=== PATIENT | male | born 1945 | race Caucasian/White ===

== ENCOUNTER 2018-05-23 06:31 | Day surgery (SDC) | payer OTHER, MEDICARE ==
--- NOTE | 2018-05-22 11:10 | RAD REPORT ---
EXAM DESCRIPTION: RAD - Chest Pa And Lat (2 Views) - 05/22/2018 10:53 am CLINICAL HISTORY: Preop chest, pending hernia repair COMPARISON: None. TECHNIQUE: PA and lateral views of the chest were obtained. FINDINGS: The lungs are clear of a focal mass or consolidation. Dialysis catheter is in place on the right. Patient has prominent interstitial markings favored to be chronic disease. No acute respirato ry symptoms noted. Skin fold artifacts overlie the lower chest. Slight fullness of the left hilum is not outside of the normal range. No right-sided hilar mass or lymphadenopathy suspected. Heart size is normal and central vasculature is within normal limits. No pleural effusion or pneumothorax seen . Osteopenic bony changes are present. No acute bone findings seen. No aortic abnormality. IMPRESSION: Prominent interstitial markings believed to be chronic disease. No acute cardiopulmonary finding.
[2018-05-22 11:56] LABS: Absolute Lymphocytes (CBC) 0.4 K/uL (0.7-4.9); Absolute Monocytes 0.3 K/uL (0.1-1.3); Absolute Neutrophil 4.6 K/uL (1.8-8.0); Eosinophils % 15.6 % (0-4.4); Hematocrit 29.9 % (39.6-49.0); Lymphocytes % 6.6 % (15.3-44.8); MCV 89.8 fL (80-100); MPV 8.9 fL (7.6-11.3); Monocytes % 5.2 % (3.3-12.3); RBC Red Blood Cell Count 3.33 M/uL (4.33-5.43)
[2018-05-22 12:15] LABS: Potassium 4.7 mmol/L (3.5-5.1)
[2018-05-22 12:26] LABS: Blood Morphology Comment NOT SEEN (NOT SEEN); Platelet Estimate ADEQ; Urine White Blood Cell Casts OK
[2018-05-23] MEDS ORDERED: NA CHLORIDE 0.9% 1,000 ML ONE (07:02)
[2018-05-23] MEDS ORDERED: FENTANYL CITR 100 MCG/2 ML ONE (07:27)
[2018-05-23] MEDS ORDERED: PROPOFOL 200 MG/20 ML VIAL IV ONE (07:28)
[2018-05-23] MEDS ORDERED: ONDANSETRON HCL 40 MG/20 ML VIAL ONE (07:29)
[2018-05-23] MEDS ORDERED: LIDOCAINE 2% MPF 5 ML VIAL ONE (07:29)
[2018-05-23] MEDS ORDERED: MIDAZOLAM HCL 2 MG/2 ML INJ ONE (07:29)
[2018-05-23] MEDS ORDERED: ROCURONIUM 50 MG/5 ML VIAL IV ONE (07:30)
[2018-05-23] MEDS ORDERED: CEFAZOLIN/SWI 1gm 1 GM/10 ML SYR ONE (07:49)
[2018-05-23] MEDS ORDERED: GLYCOPYRROLATE 0.2 MG/ML SYR ONE ×2 (09:06)
[2018-05-23] MEDS ORDERED: NEOSTIGMINE 1 MG/ML -5 ML SYRINGE ONE (09:06)
--- NOTE | 2018-05-23 09:11 | P.BOP ---
Preoperative diagnosis: incarcerated right inguinal hernia, tender umbilical hernia Postoperative diagnosis: same Primary procedure: 1. Laparoscopic repair of right inguinal hernia with mesh Secondary procedure: 2. Open repair of umbilical hernia Morning Show Host: Azalia Maria) Estimated blood loss: <10cc Specimen: gb Findings: as above, incarcerated omentum Anesthesia: General Complications: None Implants: 3d mesh Transferred to: Recovery Room Condition: Good
[2018-05-23] MEDS ORDERED: ONDANSETRON 4 MG/2 ML VIAL ONE (10:15)
[2018-05-23] MEDS ORDERED: HYDROCODONE/APAP 5/325 MG TAB ONE (10:35)
== END 2018-05-23 12:15 | disposition home or self-care (01) ==
LOC: OR 06:31
PROVIDERS: ATTEND Surgery
PROC: 0YU54JZ Supplement Right Inguinal Region with Synthetic Substitute, Percutaneous Endoscopic Approach (ICD-10-PCS; principal; 2018-05-23 07:30)
PROC: 0WQF0ZZ Repair Abdominal Wall, Open Approach (ICD-10-PCS; 2018-05-23 07:30)
DX: K40.30 Unilateral inguinal hernia, with obstruction, without gangrene, not specified as recurrent (principal); K42.9 Umbilical hernia without obstruction or gangrene; I13.10 Hypertensive heart and chronic kidney disease without heart failure, with stage 1 through stage 4 chronic kidney disease, or unspecified chronic kidney disease; E11.22 Type 2 diabetes mellitus with diabetic chronic kidney disease; N18.9 Chronic kidney disease, unspecified; Z99.2 Dependence on renal dialysis; K21.9 Gastro-esophageal reflux disease without esophagitis; Z79.82 Long term (current) use of aspirin; Z85.828 Personal history of other malignant neoplasm of skin; Z82.49 Family history of ischemic heart disease and other diseases of the circulatory system
CPT/HCPCS: 36415; 49585; 49650; 71046; 80048; 82962 ×2; 84132; 85025; 88302; J0690; J2250; J2405 ×2; J2710; J3010; J7030

== ENCOUNTER 2021-06-26 15:33 | Emergency (ER) | payer OTHER, MEDICARE ==
--- NOTE | 2021-06-26 17:32 | RAD REPORT ---
EXAM DESCRIPTION: US - Extremity Venous Uni Ltd - 06/26/2021 5:08 pm CLINICAL HISTORY: Left arm pain and swelling COMPARISON: None. TECHNIQUE: Real-time sonographic evaluation of the left upper extremity deep venous systems was perf ormed. FINDINGS: Echogenic thrombus is present in the left axillary vein extending peripherally into the br achial vein. There is absent or only partial compression of these vessels. More peripheral or distal aspects of the brachials vein are clear of thrombus. Radial and ulna veins fully compress. No superfi cial venous thrombosis seen. Internal jugular and subclavian veins are normal as well. IMPRESSION: Acute deep venous thrombosis in the left axillary and brachial veins as detailed.
[2021-06-26 17:39] LABS: Absolute Lymphocytes (CBC) 0.5 K/uL (0.7-4.9); Basophils % 1.1 % (0-1.3); Hematocrit 31.2 % (39.6-49.0); Lymphocytes % 8.1 % (15.3-44.8); MPV 8.2 fL (7.6-11.3); RBC Red Blood Cell Count 3.54 M/uL (4.33-5.43)
[2021-06-26 18:40] LABS: Protime INR 0.98
[2021-06-26 18:50] LABS: Potassium 2.9 mmol/L (3.5-5.1)
--- NOTE | 2021-06-26 19:07 | EDPHYS ---
Physician Documentation [facility] Name: Shahid Cunningham Age: 76 yrs Sex: Male : 1945 Arrival Date: 06/26/2021 Time: 15:35 Bed 13 Private MD: ED Physician Rohit King HPI: 06/26 16:14 This 76 yrs old Male presents to ER via Ambulatory with complaints of Arm kb Problem - swelling. 16:14 The patient or guardian complains of swelling. The complaints affect the left arm. kb Context: The problem was sustained at home, resulted from unknown cause. Onset: The symptoms/episode began/occurred 2 week(s) ago. Treatment prior to arrival includes: prescription medications, antibiotics. Modifying factors: The symptoms are alleviated by nothing. the symptoms are aggravated by nothing. Associated signs and symptoms: Pertinent positives: swelling, Pertinent negatives: decreased range of motion, deformity, erythema, fever, nausea, numbness, pain, tingling, vomiting, warmth, weakness. Severity of symptoms: At their worst the symptoms were moderate, in the emergency department the symptoms are unchanged. The patient has not experienced similar symptoms in the past. The patient has not recently seen a physician. Pt reports he fell 2 weeks ago and has had swelling to left arm ever since. Had two wounds to elbow area that are healing well. Is now on second round of antibiotics from the [place], had x-rays which were normal.. 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 - Social history:: Smoking status: Patient denies any tobacco usage or history of. ROS: 16:06 Constitutional: Negative for fever, chills, and weight loss. kb 16:06 MS/extremity: Positive for swelling, of the left arm. 16:06 All other systems are negative. Exam: 16:12 Constitutional: This is a well developed, well nourished patient who is awake, alert, kb and in no acute distress. Head/Face: Normocephalic, atraumatic. ENT: Moist Mucous membranes Respiratory: Respirations even and unlabored. No increased work of breathing, no retractions or nasal flaring. Skin: Warm, dry with normal turgor. Normal color. Neuro: Awake and alert, GCS 15, oriented to person, place, time, and situation. Moves all extremities. Normal gait. Psych: Awake, alert, with orientation to person, place and time. Behavior, mood, and affect are within normal limits. 16:12 Musculoskeletal/extremity: Extremities: grossly normal except: noted in the left arm: swelling, ROM: intact in all extremities, Circulation is intact in all extremities. Sensation intact. Vital Signs: 15:42 BP 148 / 94; Pulse 83; Resp 17; Temp 98.9; Pulse Ox 100% ; Weight 86.18 kg; Height 6 ll1 ft. 4 in. (193.04 cm); Pain 0/10; 18:47 BP 172 / 98; Pulse 87; Resp 18; Pulse Ox 99% on R/A; jt3 15:42 Body Mass Index 23.13 (86.18 kg, 193.04 cm) ll1 MDM: 15:45 Patient medically screened. kb 15:58 Data reviewed: vital signs, nurses notes. Data interpreted: Pulse oximetry: on room air kb is 100 %. Interpretation: normal. 18:56 Counseling: I had a detailed discussion with the patient and/or guardian regarding: the kb historical points, exam findings, and any diagnostic results supporting the discharge/admit diagnosis, lab results, radiology results, the need for outpatient follow up, a family practitioner, to return to the emergency department if symptoms worsen or persist or if there are any questions or concerns that arise at home. 19:03 ED course: Consulted hospitalist about admission because a CT PE cannot be done due to kb creatinine/PD. Recommended outpatient Eliquis. Pt states he doesn't want to be admitted anyway. States he doesn't like to move his PD machine and would rather go home. Pt denies any shortness of breath or chest pain. Pt o2 sat 100% on room air. Resp even and unlabored. Pt given strict return precautions. Daughter educated as well. Both in agreement with plan of care. . 06/26 16:04 Order name: CBC with Diff; Complete Time: 18:40 kb 06/26 16:04 Order name: Basic Metabolic Panel; Complete Time: 18:51 kb 06/26 16:04 Order name: US Extremity Venous Unilateral Ltd; Complete Time: 17:35 kb 06/26 17:04 Order name: Protime (+inr); Complete Time: 18:40 kb 06/26 17:04 Order name: Ptt, Activated; Complete Time: 18:40 kb 06/26 16:04 Order name: IV Start; Complete Time: 17:29 kb Administered Medications: 18:57 CANCELLED (Duplicate Order): Potassium Chloride 20 mEq PO once kb 19:06 Drug: Potassium Chloride 40 mEq Route: PO; jt3 19:37 Follow up: Response: No adverse reaction bb 19:06 Drug: Eliquis (apixaban) 10 mg Route: PO; jt3 19:37 Follow up: Response: No adverse reaction bb Disposition Summary: 06/26/21 19:06 Discharge Ordered Location: Home kb Condition: Stable kb Diagnosis - Acute embolism and thrombosis of deep veins of left upper extremity kb Followup: kb - With: Emergency Department - When: As needed - Reason: Worsening of condition Followup: kb - With: Private Physician - When: 2 - 3 days - Reason: Recheck today's complaints, Continuance of care, Re-evaluation by your physician Discharge Instructions: - Discharge Summary Sheet kb - Deep Vein Thrombosis kb Forms: - Medication Reconciliation Form kb - Thank You Letter kb - Antibiotic Education kb - Prescription Opioid Use kb Prescriptions: - Eliquis DVT-PE Treat 30D Start 5 mg (74 tabs) Oral tablets,dose pack - take 10 milligram by ORAL route 2 times per day Take 10mg BID for 7 days, then kb 5mg BID until prescription complete; 74 milligram; Refills: 0, Product Selection Permitted Addendum: 06/29/2021 22:59 Co-signature as Attending Physician, Rohit King MD PA/GRE TUTOR's history reviewed, m a2 patient interviewed, and examined. I agree with assessment and care plan and confirm the diagnosis (es) above. Signatures: Dispatcher [employer] Sisi Maharaj, SHANNON-C HAND PLATE STACKER-Rohit Cole MD MD ma2 Juan Jade RN RN ll1 Shay Morris RN RN jt3 Renay Vaca RN bb Corrections: (The following items were deleted from the chart) 06/26 15:42 15:39 Allergies: No Known Allergies; ll1 ll1 18:57 18:56 Potassium Chloride 20 mEq PO once ordered. kb kb
--- NOTE | 2021-06-26 19:07 | ER ---
Nurse's Notes [facility] Name: Shahid Cunningham Age: 76 yrs Sex: Male : 1945 Arrival Date: 06/26/2021 Time: 15:35 Bed 13 Private MD: Diagnosis: Acute embolism and thrombosis of deep veins of left upper extremity Presentation: 06/26 15:42 Chief complaint: Patient states: L arm swelling for 2 weeks. Was told to come get check ll1 at ER if it doesn't get better. [facility]. Coronavirus screen: Vaccine status: Patient reports receiving the 2nd dose of the covid vaccine. Client denies travel out of the [place] in the last 14 days. At this time, the client does not indicate any symptoms associated with coronavirus-19. Ebola Screen: Patient denies travel to an Ebola-affected area in the 21 days before illness onset. Initial Sepsis Screen: Does the patient meet any 2 criteria? No. Patient's initial sepsis screen is negative. Does the patient have a suspected source of infection? Yes: Skin breakdown/wound. Risk Assessment: Do you want to hurt yourself or someone else? Patient reports no desire to harm self or others. Onset of symptoms was June 12, 2021. 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 - Social history:: Smoking status: Patient denies any tobacco usage or history of. Screenin:56 Abuse screen: Denies threats or abuse. Denies injuries from another. jt3 18:47 Nutritional screening: No deficits noted. Tuberculosis screening: No symptoms or risk jt3 factors identified. Fall Risk None identified. Assessment: 15:56 Pain: Denies pain. Musculoskeletal: Reports Pt. has 3+ pitting edema to his left arm. jt3 Denies pain. Pt. had a fall 6 weeks ago and has had on and off swelling in his left arm. No exudate coming from arm. Pt. has minor healing wounds on left arm. 17:21 Reassessment: Pt. transported to US.. jt3 18:47 Reassessment: Patient appears in no apparent distress at this time. No changes from jt3 previously documented assessment. 19:36 Reassessment: Patient is alert, oriented x 3, equal unlabored respirations, skin bb warm/dry/pink. pt verbalized understanding of and agrees to plan of care discharge instructions given pt ambulated with steady gait to exit accompanied by family. Vital Signs: 15:42 BP 148 / 94; Pulse 83; Resp 17; Temp 98.9; Pulse Ox 100% ; Weight 86.18 kg; Height 6 ll1 ft. 4 in. (193.04 cm); Pain 0/10; 18:47 BP 172 / 98; Pulse 87; Resp 18; Pulse Ox 99% on R/A; jt3 15:42 Body Mass Index 23.13 (86.18 kg, 193.04 cm) ll1 ED Course: 15:35 Patient arrived in ED. as 15:39 Arm band placed on Patient placed in an exam room, on a stretcher. ll1 15:43 Triage completed. ll1 15:44 Shay Morris, DELPHINE is Primary Nurse. jt3 15:45 Sisi Phan FNP-C is PHCP. kb 15:45 Rohit King MD is Attending Physician. kb 15:56 Patient has correct armband on for positive identification. Fall risk band placed. Bed jt3 in low position. Call light in reach. Side rails up X2. 15:56 No provider procedures requiring assistance completed. jt3 17:07 US Extremity Venous Unilateral Ltd In Process Unspecified. EDMS 17:28 Inserted saline lock: 22 gauge in right antecubital area, using aseptic technique. gd Blood collected. 17:29 Basic Metabolic Panel Sent. gd 18:50 Notified ED physician of a critical lab result(s). Potassium: 2.9, Creatinine jt3 6.31-Sisi ORTEGA. 19:37 IV discontinued, intact, bleeding controlled, No redness/swelling at site. Pressure bb dressing applied. Administered Medications: 18:57 CANCELLED (Duplicate Order): Potassium Chloride 20 mEq PO once kb 19:06 Drug: Potassium Chloride 40 mEq Route: PO; jt3 19:37 Follow up: Response: No adverse reaction bb 19:06 Drug: Eliquis (apixaban) 10 mg Route: PO; jt3 19:37 Follow up: Response: No adverse reaction bb Outcome: 19:06 Discharge ordered by . kb 19:36 Discharged to home ambulatory, with family. bb 19:36 Condition: stable 19:36 Discharge instructions given to patient, family, Instructed on discharge instructions, follow up and referral plans. medication usage, Demonstrated understanding of instructions, follow-up care, medications, Prescriptions given X 1. 19:40 Patient left the ED. bb Signatures: Dispatcher [employer] EDMS Sisi Phan, ART EDITOR-C ART EDITOR-Mirella Montenegro Brenda RN RN bb Juan Jade RN RN ll1 Ace [place] Jordan RN RN jt3 Corrections: (The following items were deleted from the chart) 15:42 15:39 Allergies: No Known Allergies; ll1 ll1
[2021-06-26] MEDS ORDERED: APIXABAN 5 MG TABLET ONE (19:25)
[2021-06-26] MEDS ORDERED: POTASSIUM CL SA 10 MEQ TAB PO ONE (19:26)
[2021-06-26 19:46] VITALS: TEMP 98.9
[2021-06-26 19:47] VITALS: BP 172/98; O2SAT 99
== END 2021-06-26 19:40 | disposition home or self-care (01) ==
LOC: ER 15:33
DX: I82.622 Acute embolism and thrombosis of deep veins of left upper extremity (principal); I10 Essential (primary) hypertension; Z95.0 Presence of cardiac pacemaker; Z88.5 Allergy status to narcotic agent
CPT/HCPCS: 36415; 80048; 85025; 85610; 85730; 93971; 99284

== ENCOUNTER 2021-09-02 15:07 | Inpatient (IN) | payer OTHER, MEDICARE ==
--- OUTSIDE RECORDS SUMMARY | 2021-09-02 15:11 | XMS REPORT | Continuity of Care Document ---
:1945 Author Organization [facility] t Address [address] [place] [address] Care Team Providers Name Role Phone Leodan Attending Clinician Unavailable Leodan Admitting Clinician Unavailable Luz Ruiz Admitting Clinician Unavailable Payers Payer Name Policy Type Policy Number Effective Date Expiration Date S ource Problems This patient has no known problems. Allergies, Adverse Reactions, Alerts Allergy Allergy Status Severity Reaction(s) Onset Inactive Treating Comm ents Source Name Type Date Date Clinician codeine DA Active U 2020-0 [facility] 8[facility] Clear 00:00: [place] 00 [facility] codeine DA Active U VOMITING 2020-0 [facility] 8-08 Clear 00:00: [place] 00 [facility] codeine DA Active U 2003- [facility] 2[facility] [place] [facility] levoflox DA Active U 2003- [facility] acin 2- [place] [facility] d [facility] CODEINE DA Active U 2003- [facility] 2-11 [place] 00:00: d 00 [facility] LEVAQUIN DA Active U 2003- [facility] 2[facility] [place] 00[facility] d [facility] No Known DA Active U 2003- [facility] Contrast 2-11 [place] Allergie 00:00: d s 00 [facility] No Known DA Active U 2003- [facility] Food 2-11 [place] Allergie 00:00: d s 00 [facility] No Known DA Active U 2003- [facility] Other 2-11 [place] Allergie 00:00: d s 00 [facility] Medications This patient has no known medications. Procedures Procedure Date / Time Performed Performing Clinician Sourc e [id number] 2021-04-11 00:00:00 AHMMO.01 [facility] [id number] 2021-04-10 00:00:00 BURDA.06 [facility] [id number] 2021-04-10 00:00:00 BURDA.06 [facility] [id number] 2021-04-10 00:00:00 BURDA.06 [facility] [id number] 2021-04-10 00:00:00 BURDA.06 [facility] [id number] 2021-04-10 00:00:00 BURDA.06 [facility] [id number] 2021-04-09 00:00:00 GAHAM [facility] [id number] 2021-04-09 00:00:00 AHMMO.01 [facility] [id number] 2021-04-08 00:00:00 AHMMO.01 [facility] Encounters Start End Encounter Admission Attending Care Care Encounter Source Date/Time Date/Time Type Type Clinicians Facility Department ID 2021-04-06 2021-04-12 Inpatient EM KIMMIE Alcocer INTE.02 [id number] [facility] 13:36:00 17:13:00 [facility] [id number] [facility] 2021-04-06 2021-04-06 Outpatient ENDY Alcocer LABO [id number] [facility] 21:22:00 21:22:00 [facility] [id number] [facility] 2021-04-05 2021-04-05 Inpatient EM KIMMIE Alcocer INTE.02 [id number] [facility] 23:01:00 23:00:00 [facility] [id number] [facility] Results Test Description Test Time Test Comments Results Result Comments Source GLUCOSE BEDSIDE TESTING 2021-04-11 14:15:00 Test Item Value Reference Range Interpretation Comme nts GLUCOSE BEDSIDE TESTING (test code = GLUBED) 141 mg/dL 70-110 H GLUCOSE BEDSIDE [id number] 09:40:00 Test Item Value Reference Range Interpretation Comments GLUCOSE BEDSIDE TESTING (test code 140 mg/dL 70-110 H = GLUBED) CBC W/AUTO [id number] 06:25:00 Test Item Value Reference Range Interpretation Comments WHITE BLOOD CELL 5.4 K/mm3 3.5-11.0 N (test code = WBC) RED BLOOD CELL (test 3.79 M/mm3 4.70-6.10 L code = RBC) HEMOGLOBIN (test code 10.9 G/DL 12.3-15.9 L = HGB) HEMATOCRIT (test code 34.2 % 35.8-46.7 L = HCT) MEAN CELL VOLUME 90.2 Fl 86.3-98.9 N (test code = MCV) MEAN CELL HGB (test 28.8 pg 28.9-34.4 L code = MCH) MEAN CELL HGB 31.9 G/DL 32.1-34.5 L CONCETRATION (test code = MCHC) RED CELL DISTRIBUTION 15.1 SD 11.5-14.5 H WIDTH (test code = RDW) PLATELET COUNT (test 141 K/mm3 150-450 L code = PLT) MEAN PLATELET VOLUME 10.80 fL 7.0-9.6 H (test code = MPV) NEUTROPHIL % (test 76.1 % 40-76 H code = NT%) IMMATURE GRANULOCYTE 0.2 % 0.0-5.0 N % (test code = IG%) LYMPHOCYTE % (test 4.9 % 20.5-51.1 L code = LY%) MONOCYTE % (test code 7.9 % 1.7-9.3 N = MO%) EOSINOPHIL % (test 10.5 % 0.0-6.0 H code = EO%) BASOPHIL % (test code 0.4 % 0.0-2.0 N = BA%) NUCLEATED RBC % (test 0.0 /100WBC% 0.0-1.0 N code = NRBC%) NEUTROPHIL # (test 4.1 K/mm3 1.8-7.6 N code = NT#) IMMATURE GRANULOCYTE 0.01 x10 3/uL 0.00-0.03 N # (test code = IG#) LYMPHOCYTE # (test 0.3 K/mm3 0.6-3.0 L code = LY#) MONOCYTE # (test code 0.4 K/mm3 0.2-1.5 N = MO#) EOSINOPHIL # (test 0.6 K/mm3 0.0-0.4 H code = EO#) BASOPHIL # (test code 0.0 K/mm3 0.0-0.2 N = BA#) NUCLEATED RBC # (test 0.0 K/mm3 0.00-0.01 N code = NRBC#) MANUAL DIFF REQUIRED NO DIFF/SCN CRITERIA SLIDE R BLESSING (test code = MDIFF) CONSISTA NT WITH AUTO DIFFERENTI AL. RENAL FUNCTION [id number] 06:16:00 Test Item Value Reference Range Interpretation Comments SODIUM (test code = NA) 139 mmol/L 134-147 N POTASSIUM (test code = K) 3.4 mmol/L 3.4-5.0 N CHLORIDE (test code = CL) 105 mmol/L 100-108 N CARBON DIOXIDE (test code = CO2) 28 mmol/L 21-32 N GLUCOSE (test code = GLU) 201 MG/DL 70-110 H BLOOD UREA NITROGEN (test code = 23 MG/DL 7-18 H BUN) GLOMERULAR FILTRATION RATE (test 9 estGFR >60 L code = GFR) CREATININE (test code = CREAT) 6.7 MG/DL 0.8-1.3 H ALBUMIN (test code = ALB) 1.9 G/DL 3.4-5.0 L CALCIUM (test code = CA) 8.0 MG/DL 8.5-10.1 L PHOSPHOROUS (test code = PHOS) 4.3 MG/DL 2.5-4.9 N CBC W/AUTO [id number] 05:32:00 Test Item Value Reference Range Interpretation Comments WHITE BLOOD CELL (test code = WBC) 5.4 K/mm3 3.5-11.0 N RED BLOOD CELL (test code = RBC) 3.79 M/mm3 4.70-6.10 L HEMOGLOBIN (test code = HGB) 10.9 G/DL 12.3-15.9 L HEMATOCRIT (test code = HCT) 34.2 % 35.8-46.7 L MEAN CELL VOLUME (test code = MCV) 90.2 Fl 86.3-98.9 N MEAN CELL HGB (test code = MCH) 28.8 pg 28.9-34.4 L MEAN CELL HGB CONCETRATION (test 31.9 G/DL 32.1-34.5 L code = MCHC) RED CELL DISTRIBUTION WIDTH (test SD 11.5-14.5 H code = RDW) PLATELET COUNT (test code = PLT) 141 K/mm3 150-450 L MEAN PLATELET VOLUME (test code = fL 7.0-9.6 H MPV) NEUTROPHIL % (test code = NT%) % 40-76 H IMMATURE GRANULOCYTE % (test code % 0.0-5.0 N = IG%) LYMPHOCYTE % (test code = LY%) % 20.5-51.1 L MONOCYTE % (test code = MO%) % 1.7-9.3 N EOSINOPHIL % (test code = EO%) % 0.0-6.0 H BASOPHIL % (test code = BA%) % 0.0-2.0 N NUCLEATED RBC % (test code = /100WBC% 0.0-1.0 N NRBC%) NEUTROPHIL # (test code = NT#) K/mm3 1.8-7.6 N IMMATURE GRANULOCYTE # (test code x10 3/uL 0.00-0.03 N = IG#) LYMPHOCYTE # (test code = LY#) K/mm3 0.6-3.0 L MONOCYTE # (test code = MO#) K/mm3 0.2-1.5 N EOSINOPHIL # (test code = EO#) K/mm3 0.0-0.4 H BASOPHIL # (test code = BA#) K/mm3 0.0-0.2 N NUCLEATED RBC # (test code = K/mm3 0.00-0.01 N NRBC#) MANUAL DIFF REQUIRED (test code = DIFF/SCN CRITERIA MDIFF) GLUCOSE BEDSIDE [id number] 20:34:00 Test Item Value Reference Range Interpretation Comments GLUCOSE BEDSIDE TESTING (test code 235 mg/dL 70-110 H = GLUBED) - XR CHEST 1 [id number] 13:12:00 [facility] [place] : 1945 Sex: M Name: KIRIT PEÑA : 1945ge/S: / [place] [address] Unit #: [id number] Loc: [place] [address] Phys: Deon Mederos MD Acct: [id number] Dis Date: Status: ADM IN PHONE#: [phone] Exam Date: 04/10/2021 1255 FAX #: Reason: s/p ICD EXAMS: CPT: [id number] XR CHEST 1 V [id number] Fluoro Time: DAP (Gy m2): Air Kerma (mGy): EXAMINATION: Frontal chest radiograph INDICATION: s/p ICD COMPARISON: 04/06/2021 LOCATION: S17 FINDINGS: Enlarged cardiac silhouette with left chest defibrillator. No definite pleural effusion or pneumothorax. Slightly increased left basilar atelectasis, component of infection not excluded. Possible mild interstitial edema. IMPRESSION: 1. No pneumothorax. 2. Slightly increased left basilar opacity. Possible mild interstitial edema. at 1312 Reported and signed by: Lewis Gómez M.D. CC: Deon Mederos MD; Ric Alcocer MD; Krysten Ruiz MD PAGE 1 Signed Report Name: KIRIT PEÑA Freeborn : 1945 Age/S: / [place] [address] Unit #: [id number] Loc: [place] [address] Phys: Deon Mederos MD Acct: [id number] Dis Date: Status: ADM IN PHONE #: [phone] Exam Date: 04/10/2021 1255 FAX #: Reason: s/p ICD EXAMS: CPT: [id number] XR CHEST 1 V [id number] Fluoro Time: DAP (Gy m2): Air Kerma (mGy): <Continued> Technologist: Tiffanie Malone RT(R)(CT) Trnscb Date/Time: 04/10/2021 (1312) [email or web address] Orig Print D/T: S: 04/10/2021(1873) PAGE 2 Signed ReportGLUCOSE BEDSIDE [id number] 11:32:00 Test Item Value Reference Range Interpretation Comments GLUCOSE BEDSIDE TESTING (test code 136 mg/dL 70-110 H = GLUBED) GLUCOSE BEDSIDE [id number] 07:53:00 Test Item Value Reference Range Interpretation Comments GLUCOSE BEDSIDE TESTING (test code 116 mg/dL 70-110 H = GLUBED) BASIC METABOLIC [id number] 06:49:00 Test Item Value Reference Range Interpretation Comments SODIUM (test code = NA) 140 mmol/L 134-147 N POTASSIUM (test code = K) 3.3 mmol/L 3.4-5.0 L CHLORIDE (test code = CL) 105 mmol/L 100-108 N CARBON DIOXIDE (test code = CO2) 30 mmol/L 21-32 N ANION GAP (test code = GAP) 5.0 GAP calc 4.0-15.0 N GLUCOSE (test code = GLU) 115 MG/DL 70-110 H BLOOD UREA NITROGEN (test code = 25 MG/DL 7-18 H BUN) GLOMERULAR FILTRATION RATE (test 9 estGFR >60 L code = GFR) CREATININE (test code = CREAT) 6.7 MG/DL 0.8-1.3 H CALCIUM (test code = CA) 7.8 MG/DL 8.5-10.1 L RENAL FUNCTION [id number] 06:49:00 Test Item Value Reference Range Interpretation Comments ALBUMIN (test code = ALB) 2.1 G/DL 3.4-5.0 L PHOSPHOROUS (test code = PHOS) 4.0 MG/DL 2.5-4.9 N CBC W/AUTO [id number] 06:42:00 Test Item Value Reference Range Interpretation Comments WHITE BLOOD CELL 4.6 K/mm3 3.5-11.0 N (test code = WBC) RED BLOOD CELL (test 3.98 M/mm3 4.70-6.10 L code = RBC) HEMOGLOBIN (test code 11.5 G/DL 12.3-15.9 L = HGB) HEMATOCRIT (test code 35.9 % 35.8-46.7 N = HCT) MEAN CELL VOLUME 90.2 Fl 86.3-98.9 N (test code = MCV) MEAN CELL HGB (test 28.9 pg 28.9-34.4 N code = MCH) MEAN CELL HGB 32.0 G/DL 32.1-34.5 L CONCETRATION (test code = MCHC) RED CELL DISTRIBUTION 15.0 SD 11.5-14.5 H WIDTH (test code = RDW) PLATELET COUNT (test 154 K/mm3 150-450 N code = PLT) MEAN PLATELET VOLUME 10.90 fL 7.0-9.6 H (test code = MPV) NEUTROPHIL % (test 69.9 % 40-76 N code = NT%) IMMATURE GRANULOCYTE 0.2 % 0.0-5.0 N % (test code = IG%) LYMPHOCYTE % (test 8.1 % 20.5-51.1 L code = LY%) MONOCYTE % (test code 7.6 % 1.7-9.3 N = MO%) EOSINOPHIL % (test 13.8 % 0.0-6.0 H code = EO%) BASOPHIL % (test code 0.4 % 0.0-2.0 N = BA%) NUCLEATED RBC % (test 0.0 /100WBC% 0.0-1.0 N code = NRBC%) NEUTROPHIL # (test 3.2 K/mm3 1.8-7.6 N code = NT#) IMMATURE GRANULOCYTE 0.01 x10 3/uL 0.00-0.03 N # (test code = IG#) LYMPHOCYTE # (test 0.4 K/mm3 0.6-3.0 L code = LY#) MONOCYTE # (test code 0.4 K/mm3 0.2-1.5 N = MO#) EOSINOPHIL # (test 0.6 K/mm3 0.0-0.4 H code = EO#) BASOPHIL # (test code 0.0 K/mm3 0.0-0.2 N = BA#) NUCLEATED RBC # (test 0.0 K/mm3 0.00-0.01 N code = NRBC#) MANUAL DIFF REQUIRED NO DIFF/SCN CRITERIA SLIDE R COTYW (test code = MDIFF) CONSISTA NT WITH AUTO DIFFERENTI AL. CBC W/AUTO [id number] 05:47:00 Test Item Value Reference Range Interpretation Comments WHITE BLOOD CELL (test code = WBC) 4.6 K/mm3 3.5-11.0 N RED BLOOD CELL (test code = RBC) 3.98 M/mm3 4.70-6.10 L HEMOGLOBIN (test code = HGB) 11.5 G/DL 12.3-15.9 L HEMATOCRIT (test code = HCT) 35.9 % 35.8-46.7 N MEAN CELL VOLUME (test code = MCV) 90.2 Fl 86.3-98.9 N MEAN CELL HGB (test code = MCH) 28.9 pg 28.9-34.4 N MEAN CELL HGB CONCETRATION (test 32.0 G/DL 32.1-34.5 L code = MCHC) RED CELL DISTRIBUTION WIDTH (test SD 11.5-14.5 H code = RDW) PLATELET COUNT (test code = PLT) 154 K/mm3 150-450 N MEAN PLATELET VOLUME (test code = fL 7.0-9.6 H MPV) NEUTROPHIL % (test code = NT%) % 40-76 N IMMATURE GRANULOCYTE % (test code % 0.0-5.0 N = IG%) LYMPHOCYTE % (test code = LY%) % 20.5-51.1 L MONOCYTE % (test code = MO%) % 1.7-9.3 N EOSINOPHIL % (test code = EO%) % 0.0-6.0 H BASOPHIL % (test code = BA%) % 0.0-2.0 N NUCLEATED RBC % (test code = /100WBC% 0.0-1.0 N NRBC%) NEUTROPHIL # (test code = NT#) K/mm3 1.8-7.6 N IMMATURE GRANULOCYTE # (test code x10 3/uL 0.00-0.03 N = IG#) LYMPHOCYTE # (test code = LY#) K/mm3 0.6-3.0 L MONOCYTE # (test code = MO#) K/mm3 0.2-1.5 N EOSINOPHIL # (test code = EO#) K/mm3 0.0-0.4 H BASOPHIL # (test code = BA#) K/mm3 0.0-0.2 N NUCLEATED RBC # (test code = K/mm3 0.00-0.01 N NRBC#) MANUAL DIFF REQUIRED (test code = DIFF/SCN CRITERIA MDIFF) GLUCOSE BEDSIDE [id number] 20:52:00 Test Item Value Reference Range Interpretation Comments GLUCOSE BEDSIDE TESTING (test code 175 mg/dL 70-110 H = GLUBED) GLUCOSE BEDSIDE [id number] 17:02:00 Test Item Value Reference Range Interpretation Comments GLUCOSE BEDSIDE TESTING (test code 144 mg/dL 70-110 H = GLUBED) GLUCOSE BEDSIDE [id number] 11:28:00 Test Item Value Reference Range Interpretation Comments GLUCOSE BEDSIDE TESTING (test code 104 mg/dL 70-110 N = GLUBED) CBC W/AUTO [id number] 08:33:00 Test Item Value Reference Range Interpretation Comments WHITE BLOOD CELL 4.6 K/mm3 3.5-11.0 N (test code = WBC) RED BLOOD CELL (test 3.68 M/mm3 4.70-6.10 L code = RBC) HEMOGLOBIN (test code 10.7 G/DL 12.3-15.9 L = HGB) HEMATOCRIT (test code 33.4 % 35.8-46.7 L = HCT) MEAN CELL VOLUME 90.8 Fl 86.3-98.9 N (test code = MCV) MEAN CELL HGB (test 29.1 pg 28.9-34.4 N code = MCH) MEAN CELL HGB 32.0 G/DL 32.1-34.5 L CONCETRATION (test code = MCHC) RED CELL DISTRIBUTION 15.3 SD 11.5-14.5 H WIDTH (test code = RDW) PLATELET COUNT (test 143 K/mm3 150-450 L code = PLT) MEAN PLATELET VOLUME 10.70 fL 7.0-9.6 H (test code = MPV) NEUTROPHIL % (test 71.8 % 40-76 N code = NT%) IMMATURE GRANULOCYTE 0.2 % 0.0-5.0 N % (test code = IG%) LYMPHOCYTE % (test 9.6 % 20.5-51.1 L code = LY%) MONOCYTE % (test code 6.8 % 1.7-9.3 N = MO%) EOSINOPHIL % (test 11.2 % 0.0-6.0 H code = EO%) BASOPHIL % (test code 0.4 % 0.0-2.0 N = BA%) NUCLEATED RBC % (test 0.0 /100WBC% 0.0-1.0 N code = NRBC%) NEUTROPHIL # (test 3.3 K/mm3 1.8-7.6 N code = NT#) IMMATURE GRANULOCYTE 0.01 x10 3/uL 0.00-0.03 N # (test code = IG#) LYMPHOCYTE # (test 0.4 K/mm3 0.6-3.0 L code = LY#) MONOCYTE # (test code 0.3 K/mm3 0.2-1.5 N = MO#) EOSINOPHIL # (test 0.5 K/mm3 0.0-0.4 H code = EO#) BASOPHIL # (test code 0.0 K/mm3 0.0-0.2 N = BA#) NUCLEATED RBC # (test 0.0 K/mm3 0.00-0.01 N code = NRBC#) MANUAL DIFF REQUIRED NO DIFF/SCN CRITERIA SLIDE R COTYW (test code = MDIFF) CONSISTA NT WITH AUTO DIFFERENTI AL. GLUCOSE BEDSIDE [id number] 07:55:00 Test Item Value Reference Range Interpretation Comments GLUCOSE BEDSIDE TESTING (test code 131 mg/dL 70-110 H = GLUBED) BASIC METABOLIC [id number] 06:33:00 Test Item Value Reference Range Interpretation Comments SODIUM (test code = NA) 139 mmol/L 134-147 N POTASSIUM (test code = K) 3.6 mmol/L 3.4-5.0 N CHLORIDE (test code = CL) 105 mmol/L 100-108 N CARBON DIOXIDE (test code = CO2) 27 mmol/L 21-32 N ANION GAP (test code = GAP) 7.0 GAP calc 4.0-15.0 N GLUCOSE (test code = GLU) 154 MG/DL 70-110 H BLOOD UREA NITROGEN (test code = 28 MG/DL 7-18 H BUN) GLOMERULAR FILTRATION RATE (test 8 estGFR >60 L code = GFR) CREATININE (test code = CREAT) 6.9 MG/DL 0.8-1.3 H CALCIUM (test code = CA) 7.7 MG/DL 8.5-10.1 L RENAL FUNCTION [id number] 06:33:00 Test Item Value Reference Range Interpretation Comments ALBUMIN (test code = ALB) 2.0 G/DL 3.4-5.0 L PHOSPHOROUS (test code = PHOS) 3.8 MG/DL 2.5-4.9 N [id number] 06:33:00 Test Item Value Reference Range Interpretation Comments MAGNESIUM (test code = MAG) 2.1 MG/DL 1.8-2.4 CBC W/AUTO [id number] 06:21:00 Test Item Value Reference Range Interpretation Comments WHITE BLOOD CELL (test code = WBC) 4.6 K/mm3 3.5-11.0 N RED BLOOD CELL (test code = RBC) 3.68 M/mm3 4.70-6.10 L HEMOGLOBIN (test code = HGB) 10.7 G/DL 12.3-15.9 L HEMATOCRIT (test code = HCT) 33.4 % 35.8-46.7 L MEAN CELL VOLUME (test code = MCV) 90.8 Fl 86.3-98.9 N MEAN CELL HGB (test code = MCH) 29.1 pg 28.9-34.4 N MEAN CELL HGB CONCETRATION (test 32.0 G/DL 32.1-34.5 L code = MCHC) RED CELL DISTRIBUTION WIDTH (test SD 11.5-14.5 H code = RDW) PLATELET COUNT (test code = PLT) 143 K/mm3 150-450 L MEAN PLATELET VOLUME (test code = fL 7.0-9.6 H MPV) NEUTROPHIL % (test code = NT%) % 40-76 N IMMATURE GRANULOCYTE % (test code % 0.0-5.0 N = IG%) LYMPHOCYTE % (test code = LY%) % 20.5-51.1 L MONOCYTE % (test code = MO%) % 1.7-9.3 N EOSINOPHIL % (test code = EO%) % 0.0-6.0 H BASOPHIL % (test code = BA%) % 0.0-2.0 N NUCLEATED RBC % (test code = /100WBC% 0.0-1.0 N NRBC%) NEUTROPHIL # (test code = NT#) K/mm3 1.8-7.6 N IMMATURE GRANULOCYTE # (test code x10 3/uL 0.00-0.03 N = IG#) LYMPHOCYTE # (test code = LY#) K/mm3 0.6-3.0 L MONOCYTE # (test code = MO#) K/mm3 0.2-1.5 N EOSINOPHIL # (test code = EO#) K/mm3 0.0-0.4 H BASOPHIL # (test code = BA#) K/mm3 0.0-0.2 N NUCLEATED RBC # (test code = K/mm3 0.00-0.01 N NRBC#) MANUAL DIFF REQUIRED (test code = DIFF/SCN CRITERIA MDIFF) GLUCOSE BEDSIDE [id number] 20:25:00 Test Item Value Reference Range Interpretation Comments GLUCOSE BEDSIDE TESTING (test code 242 mg/dL 70-110 H = GLUBED) CBC W/AUTO [id number] 14:15:00 Test Item Value Reference Range Interpretation Comments WHITE BLOOD CELL 4.9 K/mm3 3.5-11.0 N (test code = WBC) RED BLOOD CELL (test 3.89 M/mm3 4.70-6.10 L code = RBC) HEMOGLOBIN (test code 11.3 G/DL 12.3-15.9 L = HGB) HEMATOCRIT (test code 35.2 % 35.8-46.7 L = HCT) MEAN CELL VOLUME 90.5 Fl 86.3-98.9 N (test code = MCV) MEAN CELL HGB (test 29.0 pg 28.9-34.4 N code = MCH) MEAN CELL HGB 32.1 G/DL 32.1-34.5 N CONCETRATION (test code = MCHC) RED CELL DISTRIBUTION 15.4 SD 11.5-14.5 H WIDTH (test code = RDW) PLATELET COUNT (test 128 K/mm3 150-450 L code = PLT) MEAN PLATELET VOLUME 10.50 fL 7.0-9.6 H (test code = MPV) NEUTROPHIL % (test 77.1 % 40-76 H code = NT%) IMMATURE GRANULOCYTE 0.4 % 0.0-5.0 N % (test code = IG%) LYMPHOCYTE % (test 6.1 % 20.5-51.1 L code = LY%) MONOCYTE % (test code 6.7 % 1.7-9.3 N = MO%) EOSINOPHIL % (test 9.3 % 0.0-6.0 H code = EO%) BASOPHIL % (test code 0.4 % 0.0-2.0 N = BA%) NUCLEATED RBC % (test 0.0 /100WBC% 0.0-1.0 N code = NRBC%) NEUTROPHIL # (test 3.8 K/mm3 1.8-7.6 N code = NT#) IMMATURE GRANULOCYTE 0.02 x10 3/uL 0.00-0.03 N # (test code = IG#) LYMPHOCYTE # (test 0.3 K/mm3 0.6-3.0 L code = LY#) MONOCYTE # (test code 0.3 K/mm3 0.2-1.5 N = MO#) EOSINOPHIL # (test 0.5 K/mm3 0.0-0.4 H code = EO#) BASOPHIL # (test code 0.0 K/mm3 0.0-0.2 N = BA#) NUCLEATED RBC # (test 0.0 K/mm3 0.00-0.01 N code = NRBC#) MANUAL DIFF REQUIRED NO DIFF/SCN CRITERIA SLIDE R COTYW (test code = MDIFF) CONSISTA NT WITH AUTO DIFFERENTI AL. GLUCOSE BEDSIDE [id number] 11:11:00 Test Item Value Reference Range Interpretation Comments GLUCOSE BEDSIDE TESTING (test code 144 mg/dL 70-110 H = GLUBED) [id number] 11:09:00 Test Item Value Reference Range Interpretation Comments MAGNESIUM (test code = MAG) 1.8 MG/DL 1.8-2.4 N CBC W/AUTO [id number] 11:05:00 Test Item Value Reference Range Interpretation Comments WHITE BLOOD CELL (test code = WBC) 4.9 K/mm3 3.5-11.0 N RED BLOOD CELL (test code = RBC) 3.89 M/mm3 4.70-6.10 L HEMOGLOBIN (test code = HGB) 11.3 G/DL 12.3-15.9 L HEMATOCRIT (test code = HCT) 35.2 % 35.8-46.7 L MEAN CELL VOLUME (test code = MCV) 90.5 Fl 86.3-98.9 N MEAN CELL HGB (test code = MCH) 29.0 pg 28.9-34.4 N MEAN CELL HGB CONCETRATION (test 32.1 G/DL 32.1-34.5 N code = MCHC) RED CELL DISTRIBUTION WIDTH (test SD 11.5-14.5 H code = RDW) PLATELET COUNT (test code = PLT) K/mm3 150-450 MEAN PLATELET VOLUME (test code = fL 7.0-9.6 MPV) NEUTROPHIL % (test code = NT%) % 40-76 H IMMATURE GRANULOCYTE % (test code % 0.0-5.0 N = IG%) LYMPHOCYTE % (test code = LY%) % 20.5-51.1 L MONOCYTE % (test code = MO%) % 1.7-9.3 N EOSINOPHIL % (test code = EO%) % 0.0-6.0 H BASOPHIL % (test code = BA%) % 0.0-2.0 N NUCLEATED RBC % (test code = /100WBC% 0.0-1.0 N NRBC%) NEUTROPHIL # (test code = NT#) K/mm3 1.8-7.6 N IMMATURE GRANULOCYTE # (test code x10 3/uL 0.00-0.03 N = IG#) LYMPHOCYTE # (test code = LY#) K/mm3 0.6-3.0 L MONOCYTE # (test code = MO#) K/mm3 0.2-1.5 N EOSINOPHIL # (test code = EO#) K/mm3 0.0-0.4 H BASOPHIL # (test code = BA#) K/mm3 0.0-0.2 N NUCLEATED RBC # (test code = K/mm3 0.00-0.01 N NRBC#) MANUAL DIFF REQUIRED (test code = DIFF/SCN CRITERIA MDIFF) GLUCOSE BEDSIDE [id number] 08:03:00 Test Item Value Reference Range Interpretation Comments GLUCOSE BEDSIDE TESTING (test code 101 mg/dL 70-110 N = GLUBED) RENAL FUNCTION [id number] 02:28:00 Test Item Value Reference Range Interpretation Comments SODIUM (test code = NA) 137 mmol/L 134-147 N POTASSIUM (test code = K) 3.8 mmol/L 3.4-5.0 N CHLORIDE (test code = CL) 104 mmol/L 100-108 N CARBON DIOXIDE (test code = CO2) 28 mmol/L 21-32 N GLUCOSE (test code = GLU) 135 MG/DL 70-110 H BLOOD UREA NITROGEN (test code = 28 MG/DL 7-18 H BUN) GLOMERULAR FILTRATION RATE (test 8 estGFR >60 L code = GFR) CREATININE (test code = CREAT) 7.1 MG/DL 0.8-1.3 H ALBUMIN (test code = ALB) 2.3 G/DL 3.4-5.0 L CALCIUM (test code = CA) 7.8 MG/DL 8.5-10.1 L PHOSPHOROUS (test code = PHOS) 3.8 MG/DL 2.5-4.9 N RENAL FUNCTION [id number] 06:15:00 Test Item Value Reference Range Interpretation Comments SODIUM (test code = NA) 140 mmol/L 134-147 N POTASSIUM (test code = K) 3.4 mmol/L 3.4-5.0 N CHLORIDE (test code = CL) 104 mmol/L 100-108 N CARBON DIOXIDE (test code = CO2) 29 mmol/L 21-32 N GLUCOSE (test code = GLU) 142 MG/DL 70-110 H BLOOD UREA NITROGEN (test code = 30 MG/DL 7-18 H BUN) GLOMERULAR FILTRATION RATE (test 7 estGFR >60 L code = GFR) CREATININE (test code = CREAT) 7.8 MG/DL 0.8-1.3 H ALBUMIN (test code = ALB) 2.1 G/DL 3.4-5.0 L CALCIUM (test code = CA) 7.7 MG/DL 8.5-10.1 L PHOSPHOROUS (test code = PHOS) 4.4 MG/DL 2.5-4.9 N [id number] 06:15:00 Test Item Value Reference Range Interpretation Comments MAGNESIUM (test code = MAG) 1.6 MG/DL 1.8-2.4 L HGB [id number] 05:17:00 Test Item Value Reference Range Interpretation Comments HEMOGLOBIN (test code = HGB) 11.2 G/DL 12.3-15.9 L HEMATOCRIT (test code = HCT) 35.3 % 35.8-46.7 L PERITONEAL FLD CELL [id number] 21:21:00 Test Item Value Reference Range Interpretation Comments PERITONEAL FLD COLOR YELLOW DESCRIP. COLORLESS (test code = COLPT) PERITONEAL FLD CLEAR DESCRIP. CLEAR APPEARANCE (test code = APPPT) PERITONEAL FLD WBC (test 11 #/mm3 0-300 N code = WBCPT) PERITONEAL FLD RBC (test 5 #/mm3 0-0 H code = RBCPT) PERITONEAL FLD POLY 3 % 0-49 N (test code = POLYPT) PERITONEAL FLD 4 % 0-25 N LYMPHOCYTE (test code = LYMPHPT) PERITONEAL FLD MONOCYTE 93 % 0-71 H (test code = MONOPT) PERITONEAL FLD MANY NONE MACROPHAGE (test code = MACPT) PERITONEAL FLD RARE NONE MESOTHELIAL (test code = MESPT) PERITONEAL FLD DIFF 0-10% CREN. CRENATED COMMENT (test code = COMPT) GLUCOSE BEDSIDE [id number] 21:03:00 Test Item Value Reference Range Interpretation Comments GLUCOSE BEDSIDE TESTING (test code 160 mg/dL 70-110 H = GLUBED) GLUCOSE BEDSIDE [id number] 16:13:00 Test Item Value Reference Range Interpretation Comments GLUCOSE BEDSIDE TESTING (test code 122 mg/dL 70-110 H = GLUBED) BASIC METABOLIC [id number] 15:43:00 Test Item Value Reference Range Interpretation Comments SODIUM (test code = NA) 138 mmol/L 134-147 N POTASSIUM (test code = K) 3.5 mmol/L 3.4-5.0 N CHLORIDE (test code = CL) 103 mmol/L 100-108 N CARBON DIOXIDE (test code = CO2) 29 mmol/L 21-32 N ANION GAP (test code = GAP) 6.0 GAP calc 4.0-15.0 N GLUCOSE (test code = GLU) 142 MG/DL 70-110 H BLOOD UREA NITROGEN (test code = 32 MG/DL 7-18 H BUN) GLOMERULAR FILTRATION RATE (test 7 estGFR >60 L code = GFR) CREATININE (test code = CREAT) 8.1 MG/DL 0.8-1.3 H CALCIUM (test code = CA) 7.7 MG/DL 8.5-10.1 L LIPID PROFILE (CORONARY RISK)[id number] 15:43:00 Test Item Value Reference Range Interpretation Comments TRIGLYCERIDES (test 160 MG/DL 0-150 H code = TRIG) CHOLESTEROL (test 150 MG/DL 133-200 N code = CHOL) CHOLESTEROL/HDL 3.26 RATIO See_Comment RISK ASSOCIA OSEAS WITH RATIO (test code = CHOL/HDL RATIOS: RISK CHOLHDL) MAL E FEMALE1/2 A VERAGE 3.43 3.27AVERAGE 4.97 4.442X AVERAGE 9.55 7.05 3X AVERAGE 23.3 9 11.04 NOTE T HAT THE REFERENCE VALUE IS RELATED TO RISK LEVELS ASRECOMMENDED [facility] . [Automated mess age] The system which ge nerated this result tra nsmitted reference range : 0-. The reference range was not used to interpr et this result as normal/abnormal . HDL CHOLESTEROL 46 MG/DL 40-59 N (test code = HDL) NON-HDL CHOLESTEROL 104 mg/dL <130 (test code = NHDL) LIPOPROTEIN LDL 78 MG/DL 0-129 N <100 [id number] - (test code = LDL) 129 JASE R OPTIMAL/ABOVE [id number] - 15 9 [id number] - 189 HIGH>OR= 190 VERY HIGHNOTE THAT G UIDELINES ARE PROVIDED BY NATIONAL CHOLESTEROLEDUC ATION PROGRAM ADULT T REATMENT PANEL III LDL/HDL (test code 1.69 Ratio See_Comment N [Automat ed message] The = LDL/HDL) system which ge nerated this result tra nsmitted reference range : 1.48-3.22 Avg. The reference range was not used to interpr et this result as normal/abnormal . NT PRO-BRAIN NATRIURETIC [id number] 15:43:00 Test Item Value Reference Range Interpretation Comments NT PRO-BRAIN NATRIURETIC PEPTI > [id number] PG/ML 0-100 H (test code = PROBNP) BASIC METABOLIC [id number] 14:57:00 Test Item Value Reference Range Interpretation Comments SODIUM (test code = NA) 138 mmol/L 134-147 N POTASSIUM (test code = K) 3.5 mmol/L 3.4-5.0 N CHLORIDE (test code = CL) 103 mmol/L 100-108 N CARBON DIOXIDE (test code = CO2) 29 mmol/L 21-32 N ANION GAP (test code = GAP) 6.0 GAP calc 4.0-15.0 N GLUCOSE (test code = GLU) 142 MG/DL 70-110 H BLOOD UREA NITROGEN (test code = 32 MG/DL 7-18 H BUN) GLOMERULAR FILTRATION RATE (test 7 estGFR >60 L code = GFR) CREATININE (test code = CREAT) 8.1 MG/DL 0.8-1.3 H CALCIUM (test code = CA) 7.7 MG/DL 8.5-10.1 L LIPID PROFILE (CORONARY RISK)2021-04-06 14:57:00 Test Item Value Reference Range Interpretation Comments TRIGLYCERIDES (test 160 MG/DL 0-150 H code = TRIG) CHOLESTEROL (test 150 MG/DL 133-200 N code = CHOL) CHOLESTEROL/HDL 3.26 RATIO See_Comment RISK ASSOCIA OSEAS WITH RATIO (test code = CHOL/HDL RATIOS: RISK CHOLHDL) MAL E FEMALE1/2 A VERAGE 3.43 3.27AVERAGE 4.97 4.442X AVERAGE 9.55 7.05 3X AVERAGE 23.3 9 11.04 NOTE T HAT THE REFERENCE VALUE IS RELATED TO RISK LEVELS ASRECOMMENDED B [facility] . [Automated mess age] The system which [employer] nerated this result tra nsmitted reference range : 0-. The reference range was not used to interpr et this result as normal/abnormal . HDL CHOLESTEROL 46 MG/DL 40-59 N (test code = HDL) NON-HDL CHOLESTEROL 104 mg/dL <130 (test code = NHDL) LIPOPROTEIN LDL 78 MG/DL 0-129 N <100 [id number] - (test code = LDL) 129 JASE R OPTIMAL/ABOVE [id number] - 15 9 [id number] - 189 HIGH>OR= 190 VERY HIGHNOTE THAT G UIDELINES ARE PROVIDED BY NATIONAL CHOLESTEROLEDUC ATION PROGRAM ADULT T REATMENT PANEL III LDL/HDL (test code 1.69 Ratio See_Comment N [Automat ed message] The = LDL/HDL) system which [employer] nerated this result tra nsmitted reference range : 1.48-3.22 Avg. The reference range was not used to interpr et this result as normal/abnormal . NT PRO-BRAIN NATRIURETIC [id number] 14:57:00 Test Item Value Reference Range Interpretation Comments NT PRO-BRAIN NATRIURETIC PEPTI (test PG/ML 0-100 code = PROBNP) BASIC METABOLIC [id number] 14:41:00 Test Item Value Reference Range Interpretation Comments SODIUM (test code = NA) 138 mmol/L 134-147 N POTASSIUM (test code = K) 3.5 mmol/L 3.4-5.0 N CHLORIDE (test code = CL) 103 mmol/L 100-108 N CARBON DIOXIDE (test code = CO2) 29 mmol/L 21-32 N ANION GAP (test code = GAP) 6.0 GAP calc 4.0-15.0 N GLUCOSE (test code = GLU) 142 MG/DL 70-110 H BLOOD UREA NITROGEN (test code = 32 MG/DL 7-18 H BUN) GLOMERULAR FILTRATION RATE (test estGFR >60 code = GFR) CREATININE (test code = CREAT) MG/DL 0.8-1.3 CALCIUM (test code = CA) 7.7 MG/DL 8.5-10.1 L LIPID PROFILE (CORONARY RISK)2021-04-06 14:41:00 Test Item Value Reference Range Interpretation Comments TRIGLYCERIDES (test code MG/DL 0-150 = TRIG) CHOLESTEROL (test code = MG/DL 133-200 CHOL) CHOLESTEROL/HDL RATIO RATIO See_Comment [Auto mated message] (test code = CHOLHDL) The sy stem which generated this result transmitted ref erence range: 0-. The reference range was not used to int erpret this result as normal/abnormal . HDL CHOLESTEROL (test MG/DL 40-59 code = HDL) NON-HDL CHOLESTEROL (test mg/dL <130 code = NHDL) LIPOPROTEIN LDL (test MG/DL 0-129 code = LDL) LDL/HDL (test code = Ratio See_Comment [Autom ated message] LDL/HDL) The system [employer] h generated this result transmitted ref erence range: 1.48-3.2 2 Avg. The reference r jae was not used to interpret this result as normal/abnor mal. NT PRO-BRAIN NATRIURETIC [id number] 14:41:00 Test Item Value Reference Range Interpretation Comments NT PRO-BRAIN NATRIURETIC PEPTI (test PG/ML 0-100 code = PROBNP) GLUCOSE BEDSIDE [id number] 11:25:00 Test Item Value Reference Range Interpretation Comments GLUCOSE BEDSIDE TESTING (test code 123 mg/dL 70-110 H = GLUBED) GLUCOSE BEDSIDE [id number] 08:55:00 Test Item Value Reference Range Interpretation Comments GLUCOSE BEDSIDE TESTING (test code = 99 mg/dL 70-110 N GLUBED) [id number] 07:45:00 Test Item Value Reference Range Interpretation Comments TROPONIN-I (test 0.268 NG/ML 0.000-0.045 HH Negative: < /= 0.045 code = TROPI) Positive: >/= 0.046 Correlation wit h serial results, other cardiac markers, and cl inical findings is nec essary to determine the c linical significance of this result. Quantit ative results using d ifferent methodologies s hould not be compared to one another as nume rical results may precious yby method. Completed by Nursing: NOCOVID 19 INHOUSE [id number] 05:55:00 Test Item Value Reference Range Interpretation Comments COVID 19 INHOUSE AG NEGATIVE Negative Per manu facturer, (test code = negative result s should [id number]) be treated aspr esumptive and, if inconsi stent with clinical signs andsymptoms or necessary for patient man agement, should betested with an alternative mol ecular assay. Negative resultsdo not preclude SA RS-CoV-2 infection and s hould not be usedas the s ole basis for patient man agement decisions. Neg ative results should be considered in t he context of apatient's r ecent exposures, hist ory, presence of cli nicalsigns and symptoms co nsistent with COVID-19. [id number] 04:10:00 Test Item Value Reference Range Interpretation Comments TROPONIN-I (test 0.263 NG/ML 0.000-0.045 HH Negative: </= 0.045 code = TROPI) Positive: >/= 0.046 Correlation wit h serial results, other cardiac markers, and cl inical findings is nec essary to determine the c linical significance of this result. Quantit ative results using d ifferent methodologies s hould not be compared to one another as nume rical results may precious yby method. Completed by Nursing: NO- XR CHEST 1 [id number] 04:02:00 [facility] 1945 Sex: M Name: KIRIT PEÑA [facility] : 1945ge/S: 76 / M [id number] Unit #: [id number] Loc: [place] [address] Phys: Giovani Marrero MD Acct: [id number] Dis Date: Status: REG ER PHONE#: [phone] Exam Date: 04/06/2021349 FAX #: Reason: Abdominal Pain EXAMS: CPT: [id number] XR CHEST 1 V 70087 Fluoro Time: DAP (Gy m2): Air Kerma (mGy): AFTER HOURS SERVICE ON: 04/06/2021 4:02AM AP Portable Chest Location Code M12 HISTORY: Abdominal Pain FINDINGS: There is mild central vascular congestion and prominence of the central pulmonary vessels. Cardiac silhouette is mildly enlarged. There is no pleural effusion. There is no pneumothorax. IMPRESSION: Enlarged cardiac silhouette and mild central pulmonary vascular congestion. Electronic ally Signed by Jere Kelley on 04/06/2021 at 0402 Reported and signed by: Rohit Kelley M.D. CC: PAGE 1 Signed Report Name: KIRIT PEÑA : 1945 Age/S: 76 / M [id number] Unit #: [id number] Loc: [place] [address] Phys: Giovani Marrero MD Acct: [id number] Dis Date: Status: REG ER PHONE #: [phone] Exam Date: 04/06/2021349 FAX #: Reason:Abdominal Pain EXAMS: CPT: [id number] XR CHEST 1 V 20030 Fluoro Time: DAP (Gy m2): Air Kerma (mGy): <Continued> Technologist: Kavitha Todd, RT(R)(CT) Trnscb Date/Time: 04/06/2021 (401) [id number] Orig Print D/T: S: 04/06/2021 (0405) PAGE 2 Signed ReportCBC W/AUTO [id number] 02:27:00 Test Item Value Reference Range Interpretation Comments WHITE BLOOD CELL 6.1 K/mm3 3.5-11.0 N (test code = WBC) RED BLOOD CELL (test 4.24 M/mm3 4.70-6.10 L code = RBC) HEMOGLOBIN (test code 12.2 G/DL 12.3-15.9 L = HGB) HEMATOCRIT (test code 38.0 % 35.8-46.7 N = HCT) MEAN CELL VOLUME 89.6 Fl 86.3-98.9 N (test code = MCV) MEAN CELL HGB (test 28.8 pg 28.9-34.4 L code = MCH) MEAN CELL HGB 32.1 G/DL 32.1-34.5 N CONCETRATION (test code = MCHC) RED CELL DISTRIBUTION 15.2 SD 11.5-14.5 H WIDTH (test code = RDW) PLATELET COUNT (test 166 K/mm3 150-450 N code = PLT) MEAN PLATELET VOLUME 10.30 fL 7.0-9.6 H (test code = MPV) NEUTROPHIL % (test 82.4 % 40-76 H code = NT%) IMMATURE GRANULOCYTE 1.0 % 0.0-5.0 N % (test code = IG%) LYMPHOCYTE % (test 6.7 % 20.5-51.1 L code = LY%) MONOCYTE % (test code 5.9 % 1.7-9.3 N = MO%) EOSINOPHIL % (test 3.3 % 0.0-6.0 N code = EO%) BASOPHIL % (test code 0.7 % 0.0-2.0 N = BA%) NUCLEATED RBC % (test 0.0 /100WBC% 0.0-1.0 N code = NRBC%) NEUTROPHIL # (test 5.0 K/mm3 1.8-7.6 N code = NT#) IMMATURE GRANULOCYTE 0.06 x10 3/uL 0.00-0.03 H # (test code = IG#) LYMPHOCYTE # (test 0.4 K/mm3 0.6-3.0 L code = LY#) MONOCYTE # (test code 0.4 K/mm3 0.2-1.5 N = MO#) EOSINOPHIL # (test 0.2 K/mm3 0.0-0.4 N code = EO#) BASOPHIL # (test code 0.0 K/mm3 0.0-0.2 N = BA#) NUCLEATED RBC # (test 0.0 K/mm3 0.00-0.01 N code = NRBC#) MANUAL DIFF REQUIRED NO DIFF/SCN CRITERIA SLIDE R EVIEW (test code = MDIFF) CONSISTA NT WITH AUTO DIFFERENTI AL. BASIC METABOLIC [id number] 00:30:00 Test Item Value Reference Range Interpretation Comments SODIUM (test code = NA) 138 mmol/L 134-147 N POTASSIUM (test code = K) 2.7 mmol/L 3.4-5.0 LL CHLORIDE (test code = CL) 102 mmol/L 100-108 N CARBON DIOXIDE (test code = CO2) 29 mmol/L 21-32 N ANION GAP (test code = GAP) 7.0 GAP calc 4.0-15.0 N GLUCOSE (test code = GLU) 91 MG/DL 70-110 N BLOOD UREA NITROGEN (test code = 31 MG/DL 7-18 H BUN) GLOMERULAR FILTRATION RATE (test 7 estGFR >60 L code = GFR) CREATININE (test code = CREAT) 7.8 MG/DL 0.8-1.3 H CALCIUM (test code = CA) 8.2 MG/DL 8.5-10.1 L Completed by Nursing: ROSALEEHEPATIC FUNCTION [id number] 00:30:00 Test Item Value Reference Range Interpretation Comments TOTAL PROTEIN (test code = PROT) 5.5 G/DL 6.4-8.2 L ALBUMIN (test code = ALB) 2.6 G/DL 3.4-5.0 L BILIRUBIN TOTAL (test code = BILT) 0.80 MG/DL 0.2-1.2 N BILIRUBIN DIRECT (test code = 0.30 MG/DL 0.00-0.30 N BILD) BILIRUBIN INDIRECT (test code = 0.50 MG/DL 0.2-1.2 N BILIND) SGOT/AST (test code = AST) 39 Unit/L 15-37 H SGPT/ALT (test code = ALT) 27 Unit/L 12-78 N ALKALINE PHOSPHATASE TOTAL (test 117 Unit/L 50-136 N code = ALKP) Completed by Nursing: [id number] 00:30:00 Test Item Value Reference Range Interpretation Comments LIPASE (test code = LIP) 31 Unit/L 114-286 L Completed by Nursing: [id number] 00:30:00 Test Item Value Reference Range Interpretation Comments TROPONIN-I (test 0.295 NG/ML 0.000-0.045 HH Negative: < /= 0.045 code = TROPI) Positive: >/= 0.046 Correlation wit h serial results, other cardiac markers, and cl inical findings is nec essary to determine the c linical significance of this result. Quantit ative results using d ifferent methodologies s hould not be compared to one another as nume rical results may precious yby method. Completed by Nursing: NOCBC W/AUTO [id number] 00:30:00 Test Item Value Reference Range Interpretation Comments WHITE BLOOD CELL (test code = WBC) 6.1 K/mm3 3.5-11.0 N RED BLOOD CELL (test code = RBC) 4.24 M/mm3 4.70-6.10 L HEMOGLOBIN (test code = HGB) 12.2 G/DL 12.3-15.9 L HEMATOCRIT (test code = HCT) 38.0 % 35.8-46.7 N MEAN CELL VOLUME (test code = MCV) 89.6 Fl 86.3-98.9 N MEAN CELL HGB (test code = MCH) 28.8 pg 28.9-34.4 L MEAN CELL HGB CONCETRATION (test 32.1 G/DL 32.1-34.5 N code = MCHC) RED CELL DISTRIBUTION WIDTH (test SD 11.5-14.5 H code = RDW) PLATELET COUNT (test code = PLT) 166 K/mm3 150-450 N MEAN PLATELET VOLUME (test code = fL 7.0-9.6 H MPV) NEUTROPHIL % (test code = NT%) % 40-76 H IMMATURE GRANULOCYTE % (test code % 0.0-5.0 N = IG%) LYMPHOCYTE % (test code = LY%) % 20.5-51.1 L MONOCYTE % (test code = MO%) % 1.7-9.3 N EOSINOPHIL % (test code = EO%) % 0.0-6.0 N BASOPHIL % (test code = BA%) % 0.0-2.0 N NUCLEATED RBC % (test code = /100WBC% 0.0-1.0 N NRBC%) NEUTROPHIL # (test code = NT#) K/mm3 1.8-7.6 N IMMATURE GRANULOCYTE # (test code x10 3/uL 0.00-0.03 H = IG#) LYMPHOCYTE # (test code = LY#) K/mm3 0.6-3.0 L MONOCYTE # (test code = MO#) K/mm3 0.2-1.5 N EOSINOPHIL # (test code = EO#) K/mm3 0.0-0.4 N BASOPHIL # (test code = BA#) K/mm3 0.0-0.2 N NUCLEATED RBC # (test code = K/mm3 0.00-0.01 N NRBC#) MANUAL DIFF REQUIRED (test code = DIFF/SCN CRITERIA MDIFF) BASIC METABOLIC [id number] 00:14:00 Test Item Value Reference Range Interpretation Comments SODIUM (test code = NA) 138 mmol/L 134-147 N POTASSIUM (test code = K) 2.7 mmol/L 3.4-5.0 LL CHLORIDE (test code = CL) 102 mmol/L 100-108 N CARBON DIOXIDE (test code = CO2) 29 mmol/L 21-32 N ANION GAP (test code = GAP) 7.0 GAP calc 4.0-15.0 N GLUCOSE (test code = GLU) 91 MG/DL 70-110 N BLOOD UREA NITROGEN (test code = 31 MG/DL 7-18 H BUN) GLOMERULAR FILTRATION RATE (test 7 estGFR >60 L code = GFR) CREATININE (test code = CREAT) 7.8 MG/DL 0.8-1.3 H CALCIUM (test code = CA) 8.2 MG/DL 8.5-10.1 L Completed by Nursing: NOHEPATIC FUNCTION [id number] 00:14:00 Test Item Value Reference Range Interpretation Comments TOTAL PROTEIN (test code = PROT) 5.5 G/DL 6.4-8.2 L ALBUMIN (test code = ALB) 2.6 G/DL 3.4-5.0 L BILIRUBIN TOTAL (test code = BILT) 0.80 MG/DL 0.2-1.2 N BILIRUBIN DIRECT (test code = 0.30 MG/DL 0.00-0.30 N BILD) BILIRUBIN INDIRECT (test code = 0.50 MG/DL 0.2-1.2 N BILIND) SGOT/AST (test code = AST) 39 Unit/L 15-37 H SGPT/ALT (test code = ALT) 27 Unit/L 12-78 N ALKALINE PHOSPHATASE TOTAL (test Unit/L 50-136 code = ALKP) Completed by Nursing: [id number] 00:14:00 Test Item Value Reference Range Interpretation Comments LIPASE (test code = LIP) 31 Unit/L 114-286 L Completed by Nursing: [id number] 00:14:00 Test Item Value Reference Range Interpretation Comments TROPONIN-I (test code = TROPI) NG/ML 0.000-0.045 Completed by Nursing: ROSALEE
--- NOTE | 2021-09-02 16:56 | RAD REPORT ---
EXAM DESCRIPTION: CT - Head Brain Wo Cont - 09/02/2021 4:27 pm CLINICAL HISTORY: Fall with head injury COMPARISON: None TECHNIQUE: Computed axial tomography of the head was obtained. IV contrast was not requested. All CT scans are performed using dose optimization technique as appropriate and may include automated exposure control or mA/KV adjustment according to patient size. FINDINGS: An intracranial bleed is not seen . The ventricles are normal in caliber. No extra-axial fluid collection is noted. Calcified scalp vessels. Mild low-density areas within periventricular, deep and subcortical white matter likely represent isc hemic changes secondary to small vessel disease. Fluid within the sinuses/ mastoids is not seen. IMPRESSION: No acute intracranial abnormality is seen. If patient's symptoms persist MRI of the bra in would be recommended.
[2021-09-02 17:51] LABS: Absolute Lymphocytes (CBC) 0.1 K/uL (0.7-4.9); Hematocrit 32.3 % (39.6-49.0); MPV 9.3 fL (7.6-11.3); RBC Red Blood Cell Count 3.56 M/uL (4.33-5.43)
[2021-09-02 17:54] LABS: Protime INR 1.01
--- NOTE | 2021-09-02 18:12 | RAD REPORT ---
EXAM DESCRIPTION: CT - C Spine Wo Con - 09/02/2021 5:56 pm CLINICAL HISTORY: Neck injury status post fall COMPARISON: None. TECHNIQUE: Computed axial tomography of the cervical spine were obtained with sagittal and coronal r econstruction images generated and reviewed. All CT scans are performed using dose optimization technique as appropriate and may include automated exposure control or mA/KV adjustment according to patient size. FINDINGS: A cervical fracture is not seen. Mild posterior subluxation C4 on C5 and C5 on C6. Left posterolateral disc herniation C4-5 No dislocation IMPRESSION: A cervical fracture is not seen. If the patient continues have symptoms to suggest spinal cord/spinal canal pathology then MRI would b e recommended.
--- NOTE | 2021-09-02 18:18 | RAD REPORT ---
EXAM DESCRIPTION: CT - Facial Bones W/ Mpr - 09/02/2021 5:56 pm CLINICAL HISTORY: Facial injury status post fall COMPARISON: None TECHNIQUE: Computed axial tomography of the face was obtained. Coronal and sagittal reconstruction w as performed. All CT scans are performed using dose optimization technique as appropriate and may include automated exposure control or mA/KV adjustment according to patient size. FINDINGS: Right cheek laceration. A fracture is not seen. A TMJ dislocation is not noted. The globes are intact. Fluid within the left mastoid. IMPRESSION: Negative for a facial fracture. Fluid within the left mastoid may indicate mastoiditis.
--- NOTE | 2021-09-02 18:18 | RAD REPORT ---
EXAM DESCRIPTION: [facility] Single View09/02/2021 5:39 pm CLINICAL HISTORY: Weakness COMPARISON: 2018 FINDINGS: Mild bilateral interstitial lung opacities. The heart is mildly to moderately enlarged. Pacemaker leads are in place. IMPRESSION: Mild bilateral interstitial lung opacities probably mild interstitial pulmonary edema
[2021-09-02 18:19] LABS: ALT/SGPT 37 U/L (12-78); AST/SGOT 67 U/L (15-37); Albumin 1.9 g/dL (3.4-5.0); Alkaline Phosphatase 102 U/L (45-117); BUN Blood Urea Nitrogen 50 mg/dL (7-18); Bicarbonate 31 mmol/L (21-32); Bilirubin Direct 0.2 mg/dL (0-0.2); Bilirubin Total 0.4 mg/dL (0.2-1.0); Glucose Level 135 mg/dL (74-106); Magnesium 1.9 mg/dL (1.8-2.4); Potassium 3.7 mmol/L (3.5-5.1); Protein, Total 5.4 g/dL (6.4-8.2); Sodium Level 134 mmol/L (136-145); Troponin (Emerg Dept Use Only) 0.17 ng/mL (0.0-0.045)
[2021-09-02 19:13] LABS: Blood Morphology Comment NOT SEEN (NOT SEEN); Platelet Estimate ADEQ
[2021-09-02 19:58] LABS: SARS-COV-2 RT PCR POSITIVE (NEGATIVE)
[2021-09-02] MEDS ORDERED: NA CHLORIDE 0.9% 250 ML ONE (20:07)
[2021-09-02] MEDS ORDERED: VANCOMYCIN 1 GM/VIAL ONE (20:07)
--- NOTE | 2021-09-02 20:30 | RAD REPORT ---
EXAM DESCRIPTION: CT - Stone Protocol - 09/02/2021 7:55 pm CLINICAL HISTORY: Abdominal pain. COMPARISON: None. TECHNIQUE: Computed axial tomography of the abdomen pelvis was obtained without oral or IV contrast. Lack of IV and oral contrast limits evaluation of solid organs, bowel, and vessels. Coronal reformat jaiden images were obtained and reviewed. All CT scans are performed using dose optimization technique as appropriate and may include automated exposure control or mA/KV adjustment according to patient size. FINDINGS: The kidneys are mildly diminished in size. A renal calculus is not seen. An ureteral calcu nelida is not noted. 1 millimeter bladder calculus. The spleen is mildly enlarged. The pancreas, adrenals and liver appear grossly normal. Diverticula stem from the colon without evidence of diverticulitis. Prostate gland is mildly to moderately enlarged. Percutaneous catheter has its tip in the left pelvis. There is a small to moderate amount of ascites. IMPRESSION: Kidneys are mildly diminished in size presumably secondary to chronic disease. 1 millimeter bladder calculus Small to moderate amount of ascites
[2021-09-02] MEDS ORDERED: CEFEPIME 1 GM/VIAL ONE (21:51)
[2021-09-02] MEDS ORDERED: NA CHLORIDE 0.9% 100 ML ONE (21:51)
[2021-09-02 21:59] LABS: NT PRO-BNP > 175000 pg/mL (<450)
[2021-09-02] MEDS ORDERED: DIAZEPAM 5 MG TABLET ONE (23:07)
[2021-09-02] MEDS ORDERED: FENTANYL CITR 100 MCG/2 ML ONE (23:09)
--- NOTE | 2021-09-03 00:32 | ER ---
Nurse's Notes [facility] Name: Shahid Cunningham Age: 76 yrs Sex: Male : 1945 Arrival Date: 09/02/2021 Time: 15:08 Bed 5 Private MD: Diagnosis: Peritonitis;Elevated troponin Presentation: 09/02 15:35 Chief complaint: Patient states: I fell two nights ago, pt does not remember how he ld1 fell. He stated he passed out for 2 hours. Pt reports hitting head. Coronavirus screen: At this time, the client does not indicate any symptoms associated with coronavirus-19. Ebola Screen: No symptoms or risks identified at this time. Initial Sepsis Screen: Does the patient meet any 2 criteria? No. Patient's initial sepsis screen is negative. Does the patient have a suspected source of infection? No. Patient's initial sepsis screen is negative. Risk Assessment: Do you want to hurt yourself or someone else? Patient reports no desire to harm self or others. Onset of symptoms was September 02, 2021. 15:35 Method Of Arrival: Wheelchair ld1 15:35 Acuity: TIBURCIO 3 ld1 Triage Assessment: 15:39 General: Appears in no apparent distress. comfortable, Behavior is calm, cooperative, ld1 appropriate for age. Pain: Denies pain. Neuro: Level of Consciousness is awake, alert, obeys commands, Oriented to person, place, time, situation. Respiratory: Airway is patent Respiratory effort is even, unlabored, Respiratory pattern is regular, symmetrical. Historical: - Allergies: 15:39 Codeine; ld1 - PMHx: 15:39 "agent orange"; DM; Hypertensive disorder; skin ca; vocal cord damage; ld1 - PSHx: 15:39 L wrist SX from infection; pacemaker; squamous cell removals; ld1 - Immunization history:: Adult Immunizations up to date, Client reports receiving the 1st dose of the Covid vaccine, moderna. - Social history:: Smoking status: Patient denies any tobacco usage or history of. Patient/guardian denies using alcohol. Screenin:56 Abuse screen: Denies threats or abuse. Nutritional screening: No deficits noted. jd3 Tuberculosis screening: No symptoms or risk factors identified. Fall Risk IV access (20 points). Ambulatory Aid- Crutches/Cane/Walker (15 pts). Gait- Weak (10 pts.). Mental Status- Oriented to own ability (0 pts). Total [place] Fall Scale indicates No Risk (0-24 pts). Assessment: 17:53 General: Appears in no apparent distress. comfortable, Behavior is calm, cooperative, jd3 appropriate for age. Pain: Complains of pain in right shoulder, right wrist and back Quality of pain is described as aching. Neuro: Level of Consciousness is awake, alert, obeys commands, Oriented to person, place, time, situation, Reports a syncopal episode. Cardiovascular: Denies chest pain, Heart tones present Capillary refill < 3 seconds Patient's skin is warm and dry. Rhythm is ventricular pacer. Respiratory: Airway is patent Respiratory effort is even, unlabored, Respiratory pattern is regular, symmetrical, Breath sounds are clear bilaterally. GI: Abdomen is round non-distended, paratenial dialysis site noted Abd is soft and non tender X 4 quads. : No signs and/or symptoms were reported regarding the genitourinary system. EENT: No signs and/or symptoms were reported regarding the EENT system. Derm: Skin is intact, Skin is dry, Skin is normal, Skin temperature is warm. Musculoskeletal: Circulation, motion, and sensation intact. Range of motion: intact in all extremities. 19:56 General: pt in CT. as6 20:10 Reassessment: No changes from previously documented assessment. Patient and/or family as6 updated on plan of care and expected duration. Pain level reassessed. Patient is alert, oriented x 3, equal unlabored respirations, skin warm/dry/pink. 21:02 Reassessment: Patient appears in no apparent distress at this time. Patient and/or as6 family updated on plan of care and expected duration. Pain level reassessed. Patient is alert, oriented x 3, equal unlabored respirations, skin warm/dry/pink. pt family brought dialysis equipment. pt will initiate dialysis before bedtime. 23:41 Reassessment: Patient appears in no apparent distress at this time. Patient and/or as6 family updated on plan of care and expected duration. Pain level reassessed. Patient is alert, oriented x 3, equal unlabored respirations, skin warm/dry/pink. pt initiated dialysis without complications. dialysis in progress. 09/03 06:42 Reassessment: Patient appears in no apparent distress at this time. Patient and/or as6 family updated on plan of care and expected duration. Pain level reassessed. Patient is alert, oriented x 3, equal unlabored respirations, skin warm/dry/pink. General: Appears comfortable, Behavior is calm. Vital Signs: 09/02 15:35 BP 123 / 82; Pulse 82; Resp 18; Temp 97.9(O); Pulse Ox 100% on R/A; Weight 90.72 kg; ld1 Height 6 ft. 4 in. (193.04 cm); Pain 0/10; 18:12 BP 131 / 68; Pulse 71; Resp 18 S; Pulse Ox 98% on R/A; jd3 19:30 BP 152 / 78; Pulse 91; Resp 18; Pulse Ox 100% on R/A; as6 21:00 BP 167 / 83; Pulse 95 LA; Resp 19; Pulse Ox 99% on R/A; as6 23:00 BP 139 / 94; Pulse 71 LA; Resp 18; Pulse Ox 100% on R/A; as6 09/03 03:00 BP 152 / 83; Pulse 94 LA; Resp 18; Pulse Ox 95% on R/A; as6 06:46 BP 159 / 97; Pulse 96 LA; Resp 19 S; Pulse Ox 97% on R/A; as6 09/04 19:13 BP 166 / 101; Pulse 95; Resp 20; Pulse Ox 95% on 2 lpm NC; vg1 09/02 15:35 Body Mass Index 24.34 (90.72 kg, 193.04 cm) ld1 [place] Coma Score: 19:13 Eye Response: spontaneous(4). Verbal Response: oriented(5). Motor Response: obeys vg1 commands(6). Total: 15. ED Course: 09/02 15:08 Patient arrived in ED. ds1 15:39 Triage completed. ld1 15:39 Arm band placed on right wrist. ld1 16:27 CT Head Brain wo Cont In Process Unspecified. EDMS 16:42 Faisal Landin PA is PHCP. jmm 16:42 Noel Salcedo MD is Attending Physician. jmm 17:08 Santana Golden, DELPHINE is Primary Nurse. jd3 17:39 XRAY Chest (1 view) In Process Unspecified. EDMS 17:56 CT Facial Bones W/O Con In Process Unspecified. EDMS 17:56 CT C Spine In Process Unspecified. EDMS 17:56 Patient has correct armband on for positive identification. Bed in low position. Call jd3 light in reach. Side rails up X2. pvc monitor on. Pulse ox on. NIBP on. 19:55 CT Stone Protocol In Process Unspecified. EDMS 09/03 00:30 Todd Huitron MD is Hospitalizing Provider[facility] 04:32 No provider procedures requiring assistance completed. Patient admitted, IV remains in as6 place. 09/04 19:28 hand off by previous RN. vg1 Administered Medications: 09/02 20:17 Drug: vancoMYCIN 1 grams Route: IVPB; Infused Over: 2 hrs; Site: right antecubital; as6 21:41 Follow up: Response: No adverse reaction; IV Intake: 500ml as6 22:21 Drug: Cefepime 1 grams Route: IVPB; Rate: 200 ml/hr; Infused Over: 30 mins; Site: left as6 antecubital; 09/03 04:33 Follow up: Response: No adverse reaction; IV Status: Completed infusion; IV Intake: as6 100ml 09/02 23:13 Drug: fentaNYL (PF) 25 mcg Route: IVP; Site: left antecubital; as6 09/03 04:33 Follow up: Response: No adverse reaction; RASS: Alert and Calm (0) as6 09/02 23:13 Drug: Ativan (LORazepam) 0.5 mg Route: PO; as6 09/03 04:33 Follow up: Response: No adverse reaction as6 Intake: 09/02 21:41 IV: 500ml; Total: 500ml. as6 09/03 04:33 IV: 100ml; Total: 600ml. as6 Outcome: 00:31 Decision to Hospitalize by Provider. [facility] 04:32 Admitted to ER Hold. Please see [facility] for further documentation. as6 04:32 Condition: stable 09/04 19:28 Patient left the ED. vg1 Signatures: Dispatcher [employer] EDMS Faisal Landin PA PA jmm Sanford, Demi dsSantana Dominguez RN RN Linh Rajput RN RN vg1 Sheeba Warren RN RN ld1 Slawson, [place], RN RN as6
--- NOTE | 2021-09-03 00:32 | EDPHYS ---
Physician Documentation [facility] Name: Shahid Cunningham Age: 76 yrs Sex: Male : 1945 Arrival Date: 09/02/2021 Time: 15:08 Bed 5 Private MD: ED Physician Noel Salcedo HPI: 09/02 16:14 This 76 yrs old Male presents to ER via Wheelchair with complaints of Fall Injury. [facility] 16:14 Details of fall: The patient fell from an upright position. Onset: The symptoms/episode jmm began/occurred acutely, 2 day(s) ago. Associated injuries: The patient sustained injury to the head. The patient has experienced similar episodes in the past. This is a 76 year old male with a history of DM, ESRD, that presents to the ED with complaints of facial pain, left sided chest pain, shoulder pain, following a fall which occurred 2 nights ago as the patient got up in the evening. Patient states feeling weak with increased nausea since. . Historical: - Allergies: 15:39 Codeine; ld1 - PMHx: 15:39 "agent orange"; DM; Hypertensive disorder; skin ca; vocal cord damage; ld1 - PSHx: 15:39 L wrist SX from infection; pacemaker; squamous cell removals; ld1 - Immunization history:: Adult Immunizations up to date, Client reports receiving the 1st dose of the Covid vaccine, moderna. - Social history:: Smoking status: Patient denies any tobacco usage or history of. Patient/guardian denies using alcohol. ROS: 16:14 Respiratory: Negative for shortness of breath, cough, wheezing, and pleuritic chest jmm pain. 16:14 Constitutional: Positive for body aches, chills. 16:14 MS/extremity: Positive for pain. 16:14 All other systems are negative. Exam: 16:14 Constitutional: This is a well developed, well nourished patient who is awake, alert, jmm and in no acute distress. 16:14 Eyes: EOMI, no conjunctival erythema appreciated ENT: Moist Mucus Membranes Neck: Trachea midline, Supple Chest/axilla: Normal chest wall appearance and motion. Cardiovascular: Regular rate and rhythm. No edema appreciated Respiratory: Normal respirations, no respiratory distress appreciated Abdomen/GI: Non distended, soft Back: Normal ROM Skin: General appearance color normal 16:14 Head/face: erythema noted to the right side of the jaw. 16:14 Musculoskeletal/extremity: ROM: intact in all extremities. 16:14 Skin: Appearance: Color: normal in color. 16:14 Neuro: Motor: is normal. Vital Signs: 15:35 BP 123 / 82; Pulse 82; Resp 18; Temp 97.9(O); Pulse Ox 100% on R/A; Weight 90.72 kg; ld1 Height 6 ft. 4 in. (193.04 cm); Pain 0/10; 18:12 BP 131 / 68; Pulse 71; Resp 18 S; Pulse Ox 98% on R/A; jd3 19:30 BP 152 / 78; Pulse 91; Resp 18; Pulse Ox 100% on R/A; as6 21:00 BP 167 / 83; Pulse 95 LA; Resp 19; Pulse Ox 99% on R/A; as6 23:00 BP 139 / 94; Pulse 71 LA; Resp 18; Pulse Ox 100% on R/A; as6 09/03 03:00 BP 152 / 83; Pulse 94 LA; Resp 18; Pulse Ox 95% on R/A; as6 06:46 BP 159 / 97; Pulse 96 LA; Resp 19 S; Pulse Ox 97% on R/A; as6 09/04 19:13 BP 166 / 101; Pulse 95; Resp 20; Pulse Ox 95% on 2 lpm NC; vg1 09/02 15:35 Body Mass Index 24.34 (90.72 kg, 193.04 cm) ld1 [place] Coma Score: 19:13 Eye Response: spontaneous(4). Verbal Response: oriented(5). Motor Response: obeys vg1 commands(6). Total: 15. MDM: 09/02 17:19 Patient medically screened. [facility] 09/03 00:22 Data reviewed: vital signs, nurses notes. Counseling: I had a detailed discussion with nuzhat the patient and/or guardian regarding: the historical points, exam findings, and any diagnostic results supporting the discharge/admit diagnosis, lab results, radiology results, the need for further work-up and treatment in the hospital, the need to transfer to another facility. ED course: I initially discussed the patient with Dr. Huitron who had some concerns due to no peritoneal dialysis and this hospital. Recommended transfer due to those complicating factors. I attempted to transfer at [facility], [facility], [facility], [facility], all were at capacity. I called Dr. Gunter whom recommended IV abx. Dr. Mae will consult on admission. . 09/02 17:20 Order name: Basic Metabolic Panel; Complete Time: 22:04 [facility] 09/02 17:20 Order name: CBC with Diff; Complete Time: 19:13 [facility] 09/02 17:20 Order name: LFT's; Complete Time: 22:04 [facility] 09/02 17:20 Order name: Magnesium; Complete Time: 22:04 [facility] 09/02 17:20 Order name: NT PRO-BNP; Complete Time: 22:04 [facility] 09/02 17:20 Order name: PT-INR; Complete Time: 17:58 [facility] 09/02 17:20 Order name: Troponin (emerg Dept Use Only); Complete Time: 22:04 [facility] 09/02 17:20 Order name: COVID-19/FLU A+B (Document "Date of Onset" if Symptomatic); Complete Time: [facility] 19:59 09/02 18:24 Order name: Manual Differential; Complete Time: 19:13 [facility] 09/02 18:36 Order name: Procalcitonin; Complete Time: 20:33 [facility] 09/02 18:36 Order name: Lactate; Complete Time: 20:33 [facility] 09/02 18:36 Order name: Blood Culture Adult (2) [facility] 09/03 00:36 Order name: Basic Metabolic Panel [facility] 09/03 00:36 Order name: Basic Metabolic Panel [facility] 09/03 00:36 Order name: Troponin High Sensitivity [facility] 09/03 00:36 Order name: CBC with Automated Diff ED[facility] 09/03 00:36 Order name: CBC with Automated Diff [facility] 09/03 07:43 Order name: Glucose, Ancillary Testing [facility] 09/03 12:36 Order name: Glucose, Ancillary Testing [facility] 09/03 17:46 Order name: Glucose, Ancillary Testing [facility] 09/04 05:52 Order name: Uric Acid [facility] 09/04 05:52 Order name: Phosphorus [facility] 09/04 05:52 Order name: NT PRO-BNP [facility] 09/04 08:32 Order name: Glucose, Ancillary Testing [facility] 09/04 11:53 Order name: Gram Stain--Aerobic Bottle [facility] 09/04 12:42 Order name: Troponin I [facility] 09/04 12:56 Order name: Procalcitonin [facility] 09/04 13:08 Order name: Hemoglobin A1c [facility] 09/04 13:15 Order name: Glucose, Ancillary Testing [facility] 09/04 16:17 Order name: Glucose, Ancillary Testing [facility] 09/02 16:13 Order name: CT Head Brain wo Cont; Complete Time: 17:03 rn 09/02 17:20 Order name: CT Facial Bones W/O Con; Complete Time: 18:19 [facility] 09/02 17:20 Order name: CT C Spine; Complete Time: 18:13 [facility] 09/02 17:20 Order name: XRAY Chest (1 view); Complete Time: 18:19 [facility] 09/02 17:20 Order name: EKG; Complete Time: 17:21 [facility] 09/02 17:20 Order name: Cardiac monitoring; Complete Time: 17:52 [facility] 09/02 17:20 Order name: EKG - Nurse/Tech; Complete Time: 17:52 [facility] 09/02 17:20 Order name: IV Saline Lock; Complete Time: 17:52 [facility] 09/02 17:20 Order name: Labs collected and sent; Complete Time: 17:52 [facility] 09/02 17:20 Order name: O2 Per Protocol; Complete Time: 17:52 [facility] 09/02 17:20 Order name: O2 Sat Monitoring; Complete Time: 17:52 [facility] 09/02 19:03 Order name: CT Stone Protocol; Complete Time: 20:33 [facility] 09/03 00:36 Order name: CONS Physician Consult [facility] 09/03 00:36 Order name: Clear Liquid [facility] 09/04 13:57 Order name: US [facility]WI Administered Medications: 09/02 20:17 Drug: vancoMYCIN 1 grams Route: IVPB; Infused Over: 2 hrs; Site: right antecubital; as6 21:41 Follow up: Response: No adverse reaction; IV Intake: 500ml as6 22:21 Drug: Cefepime 1 grams Route: IVPB; Rate: 200 ml/hr; Infused Over: 30 mins; Site: left as6 antecubital; 09/03 04:33 Follow up: Response: No adverse reaction; IV Status: Completed infusion; IV Intake: as6 100ml 09/02 23:13 Drug: fentaNYL (PF) 25 mcg Route: IVP; Site: left antecubital; 09/03 04:33 Follow up: Response: No adverse reaction; RASS: Alert and Calm (0) as6 09/02 23:13 Drug: Ativan (LORazepam) 0.5 mg Route: PO; 09/03 04:33 Follow up: Response: No adverse reaction as6 Disposition Summary: 09/03/21 00:31 Hospitalization Ordered Hospitalization Status: Inpatient Admission [facility] Provider: Todd Huitron Condition: Stable jmm Problem: new jmm Symptoms: are unchanged jmm Bed/Room Type: Standard [facility] Location: Telemetry/MedSurg (Inpatient)(09/04/21 17:37) eb Room Assignment: [facility](09/04/21 17:37) Diagnosis - Peritonitis jmm - Elevated troponin jm Forms: - Medication Reconciliation Form jmm - SBAR form [facility] Addendum: 09/07/2021 07:04 Co-signature as Attending Physician, Noel Salcedo MD I agree with the assessment and r n plan of care. Attestation: The patient's history, exam findings, diagnostics, and a summary of any interventions or procedures was reviewed in detail with Faisal SAAVEDRA. Signatures: Dispatcher [employer] Faisal Jeffrey PA PA [facility] Noel Salcedo MD MD rn Smirch, Shelby, RN RN ss Penny Bashir RN RN cg Botello, Elizabeth eb Dibbern, Lauren, RN RN ld1 Jass Michel RN RN as6 Corrections: (The following items were deleted from the chart) 09/03 11:57 00:31 Telemetry/MedSurg (observation) [facility] ss 11:57 00:31 jmm ss 19:47 11:57 [facility] ER HOLD ss cg 19:47 11:57 ERHOLD- ss cg 20:29 19:47 Telemetry/MedSurg (Inpatient) cg cg 20:29 19:47 430 cg cg 09/04 17:37 09/03 20:29 [facility] ER HOLD cg eb 09/04 17:37 09/03 20:29 ERHOLD- cg eb
[2021-09-03] MEDS ORDERED: MORPHINE 2 MG/ML SYR IV PRN (00:33)
[2021-09-03] MEDS ORDERED: ACETAMINOPHEN 500 MG TAB PO PRN (00:33)
[2021-09-03] MEDS: HEPARIN 5000 UNIT/ML 1 ML VIAL SQ SCH (09:00)
--- NOTE | 2021-09-03 10:11 | P.CNS ---
Date of Consult: 09/03/21 Reason for Consult: ESRD on PD/ Peritonitis Requesting Physician: Rodrick Huitron Primary Care Provider: Dr. Huitron Chief Complaint: Fall with pain due to trauma History of Present Illness: 76 yo WM CKD, DM presented to the ER with moderate, persistent pain due to trauma subsequent to a fall. Limited HPI/ ROS due to AMS in the setting of morphine. He gets his dialysis in [place]. 16:14 This 76 yrs old Male presents to ER via Wheelchair with complaints of Fall Injury. jmm 16:14 Details of fall: The patient fell from an upright position. Onset: The symptoms/episode jmm began/occurred acutely, 2 day(s) ago. Associated injuries: The patient sustained injury to the head. The patient has experienced similar episodes in the past. This is a 76 year old male with a history of DM, ESRD, that presents to the ED with complaints of facial pain, left sided chest pain, shoulder pain, following a fall which occurred 2 nights ago as the patient got up in the evening. Patient states feeling weak with increased nausea since. Allergies No Known Allergies Allergy (Verified 05/22/18 10:36) Home medications list reviewed: Yes Home Medications: ALPRAZolam [Xanax] 0.5 mg PO BID PRN 05/22/18 Amlodipine Besylate 5 mg PO DAILY 05/22/18 Aspirin [Aspirin EC 325 MG] 325 mg PO DAILY 05/22/18 Atorvastatin Calcium [Lipitor] 80 mg PO BEDTIME 05/22/18 Clopidogrel Bisulfate [Plavix] 75 mg PO DAILY 05/22/18 Cromolyn Sodium [Nasal Allergy [place]] 13 ml NS DAILY 05/22/18 Cyanocobalamin [Vitamin B-12] 1,000 mcg PO DAILY 05/22/18 Isosorbide Dinitrate 30 mg PO DAILY 05/22/18 Lactobacillus Acidophilus [Acidophilus Lactobacilli] 1 each PO DAILY 05/22/18 Levothyroxine [Synthroid] 50 mcg PO [id number] 05/22/18 Lorazepam [Ativan] 1 mg PO DAILYPRN PRN 05/22/18 Pantoprazole [Protonix Tab] 40 mg PO DAILY 05/22/18 Sertraline [Zoloft] 100 mg PO DAILY 05/22/18 Tamsulosin [Flomax] 0.4 mg PO BEDTIME 05/22/18 carvediloL [Coreg] 12.5 mg PO BID 05/22/18 Ciprofloxacin HCl [Cipro 500 MG Tablet] 500 mg PO BID #10 tab 05/23/18 Hydrocodone/Acetaminophen [Vicodin 5-325 mg Tablet] 1 each PO Q4H PRN #20 tablet 05/23/18 - Past Medical/Surgical History Diabetic: Yes -: ESRD -: DM II -: PD Catheter Review of Systems 10-point ROS is otherwise unremarkable General: Weakness, Malaise Cardiovascular: Edema Neurological: Weakness Physical Examination General: In no apparent distress, Cooperative HEENT: Mucous membr. moist/pink Neck: Supple Respiratory: Clear to auscultation bilaterally Cardiovascular: Regular rate/rhythm, Edema Gastrointestinal: Soft and benign, Non-distended Musculoskeletal: No clubbing, No contractures Integumentary: No rashes, No cyanosis Neurological: Abnormal speech Laboratory Data (last 24 hrs) 09/02/21 17:39: PT 11.6, INR 1.01 09/02/21 17:39: WBC 6.20, Hgb 10.6 L, Hct 32.3 L, Plt Count 120 L 09/02/21 17:39: Sodium 134 L, Potassium 3.7, BUN 50 H, Creatinine 7.89 H*, Glucose 135 H, Magnesium 1.9, Total Bilirubin 0.4, AST 67 H, ALT 37, Alkaline Phosphatase 102 Imagings Data: EXAM DESCRIPTION: CT - Stone Protocol - 09/02/2021 7:55 pm CLINICAL HISTORY: Abdominal pain. COMPARISON: None. TECHNIQUE: Computed axial tomography of the abdomen pelvis was obtained without oral or IV contrast. Lack of IV and oral contrast limits evaluation of solid organs, bowel, and vessels. Coronal reformatted images were obtained and reviewed. All CT scans are performed using dose optimization technique as appropriate and may include automated exposure control or mA/KV adjustment according to patient size. FINDINGS: The kidneys are mildly diminished in size. A renal calculus is not seen. An ureteral calculus is not noted. 1 millimeter bladder calculus. The spleen is mildly enlarged. The pancreas, adrenals and liver appear grossly normal. Diverticula stem from the colon without evidence of diverticulitis. Prostate gland is mildly to moderately enlarged. Percutaneous catheter has its tip in the left pelvis. There is a small to moderate amount of ascites. IMPRESSION: Kidneys are mildly diminished in size presumably secondary to chronic disease. 1 millimeter bladder calculus Small to moderate amount of ascites EXAM DESCRIPTION: [facility] Single View09/02/2021 5:39 pm CLINICAL HISTORY: Weakness COMPARISON: 2018 FINDINGS: Mild bilateral interstitial lung opacities. The heart is mildly to moderately enlarged. Pacemaker leads are in place. IMPRESSION: Mild bilateral interstitial lung opacities probably mild interstitial pulmonary edema Conclusions/Impression: ESRD -Continue current PD prescription Peritonitis? -Send PD fluid for Cell count, gram stain and culture -Vancomycin and Cefepime have already been administered Hyponatremia -Start Lasix HTN with CKD/ CHF -Start Coreg BID Diastolic CHF, A/C -Start Lasix q6h DM II with CKD -Consider RISS Severe malnutrition -Give IV Albumin X3 Anemia in CKD -Start Retacrit CKD MBD -Start calcitriol Thank you kindly for the consultation.
[2021-09-03] MEDS ORDERED: HEPARIN 5000 UNIT/ML 1 ML VIAL ONE ×2 (10:38→23:36)
[2021-09-03] MEDS ORDERED: MORPHINE 2 MG/ML SYR ONE (10:38)
[2021-09-03] MEDS ORDERED: ONDANSETRON 4 MG/2 ML VIAL ONE (10:41)
[2021-09-03 11:09] VITALS: BMI 24.3
[2021-09-03] MEDS: ALBUMIN HUMAN 25% 100 ML IV SCH ×2 (12:00→18:00)
[2021-09-03] MEDS: FUROSEMIDE 40 MG/4 ML VIAL IV SCH ×2 (12:00→18:00)
[2021-09-03] MEDS ORDERED: FUROSEMIDE 40 MG/4 ML VIAL ONE ×2 (13:22→18:41)
[2021-09-03] MEDS ORDERED: ALBUMIN HUMAN 25% 50 ML IV ONE ×2 (13:23→23:37)
[2021-09-03] MEDS: NEPRO SHAKE 237 ML CAN PO SCH ×2 (14:00→21:00)
[2021-09-03] MEDS ORDERED: ALBUMIN HUMAN 25% 100 ML IV ONE ×2 (18:33→23:52)
[2021-09-03] MEDS: DOCUSATE NA 100 MG CAP PO SCH (21:00)
[2021-09-03] MEDS ORDERED: carvediloL 6.25 MG TAB ONE (23:36)
[2021-09-04] MEDS: carvediloL 12.5 MG TAB PO SCH ×3 (01:00→21:35)
[2021-09-04] MEDS: HEPARIN 5000 UNIT/ML 1 ML VIAL SQ SCH ×2 (01:00→09:00)
[2021-09-04] MEDS: ALBUMIN HUMAN 25% 100 ML IV SCH (01:15)
[2021-09-04] MEDS ORDERED: FUROSEMIDE 100 MG/10 ML VIAL IV ONE (03:04)
[2021-09-04] MEDS: FUROSEMIDE 40 MG/4 ML VIAL IV SCH ×4 (03:05→18:00)
[2021-09-04] MEDS ORDERED: ONDANSETRON 4 MG/2 ML VIAL ONE (04:21)
[2021-09-04] MEDS: ONDANSETRON 4 MG/2 ML VIAL IV PRN (04:25)
[2021-09-04 05:01] LABS: Absolute Lymphocytes (CBC) 0.1 K/uL (0.7-4.9); Hematocrit 27.5 % (39.6-49.0); Lymphocytes % 2.8 % (15.3-44.8); MPV 9.1 fL (7.6-11.3); RBC Red Blood Cell Count 3.04 M/uL (4.33-5.43)
[2021-09-04 05:51] LABS: BUN Blood Urea Nitrogen 44 mg/dL (7-18); Bicarbonate 27 mmol/L (21-32); Glucose Level 198 mg/dL (74-106); NT PRO-BNP > 175000 pg/mL (<450); Phosphorus 4.1 mg/dL (2.5-4.9); Potassium 3.1 mmol/L (3.5-5.1); Sodium Level 135 mmol/L (136-145)
[2021-09-04] MEDS ORDERED: POTASSIUM CL SA 10 MEQ TAB PO ONE ×2 (07:53→10:04)
[2021-09-04] MEDS ORDERED: carvediloL 6.25 MG TAB ONE (07:54)
[2021-09-04] MEDS ORDERED: HEPARIN 5000 UNIT/ML 1 ML VIAL ONE (07:54)
[2021-09-04] MEDS ORDERED: FUROSEMIDE 40 MG/4 ML VIAL ONE ×3 (07:54→17:48)
[2021-09-04] MEDS ORDERED: DOCUSATE NA 100 MG CAP PO ONE (08:12)
[2021-09-04] MEDS ORDERED: CALCITROL 0.25 MCG CAP PO ONE (08:13)
[2021-09-04] MEDS: DOCUSATE NA 100 MG CAP PO SCH ×2 (08:43→21:34)
[2021-09-04] MEDS: NEPRO SHAKE 237 ML CAN PO SCH ×3 (09:00→21:00)
[2021-09-04] MEDS: CALCITROL 0.25 MCG CAP PO SCH (09:00)
[2021-09-04] MEDS: ISOSORBIDE DINIT 5 MG TAB PO SCH ×4 (09:00→21:50)
[2021-09-04] MEDS ORDERED: AMLODIPINE 5 MG TAB PO SCH (09:00)
[2021-09-04] MEDS ORDERED: AMLODIPINE 5 MG TAB ONE (10:01)
[2021-09-04] MEDS: FAMOTIDINE 20 MG/2 ML VIAL IV SCH (12:00)
[2021-09-04] MEDS ORDERED: FAMOTIDINE 20 MG/2 ML VIAL IV ONE (12:57)
--- NOTE | 2021-09-04 13:56 | RAD REPORT ---
EXAM DESCRIPTION: US - UPPER EXTREMITY VENOUS BILAT - 09/04/2021 1:36 pm CLINICAL HISTORY: h/o LUE DVT COMPARISON: Extremity Venous [facility] dated 06/26/2021 FINDINGS: Color Doppler, grayscale, and spectral analysis was performed of the bilateral upper extr emities. Positive for left upper extremity venous thrombosis involving the left axillary and portions of basil ic vein. On the right, the cephalic vein is partially compressible consistent with the presence of cl ot. Remaining veins are patent. The overall volume of clot in the left upper extremity is decreased . Both internal jugular veins and subclavian veins are patent. The radial and ulnar veins are patent b ilaterally. IMPRESSION: Bilateral upper extremity thrombosis. Decreased thrombus compared with the ultrasound fr om 06/26/2021 of the left upper extremity. The right upper extremity was not evaluated at that time.
[2021-09-04] MEDS ORDERED: EPOETIN 4,000 UNIT/ML VIAL SQ SCH (17:00)
[2021-09-04] MEDS: APIXABAN 2.5 MG TABLET PO SCH (21:34)
--- NOTE | 2021-09-04 21:56 | P.PN ---
Date of Service: 09/04/21 Vital Signs Temp Pulse Resp BP Pulse Ox 97.8 F 99 H 20 161/93 H 97 09/04/21 16:00 09/04/21 21:35 09/04/21 19:13 09/04/21 21:35 09/04/21 16:00 Medications Acetaminophen (Acetaminophen 500 Mg Tab) 500 mg PO Q6HP PRN PRN Reason: Pain scale 2-4 (Mild) Amlodipine Besylate (Amlodipine 5 Mg Tab) 5 mg PO DAILY [facility] Last Admin: 09/04/21 09:00 Dose: 5 mg Documented by: Apixaban (Apixaban 2.5 Mg Tablet) 2.5 mg PO BID [facility] Last Admin: 09/04/21 21:34 Dose: 2.5 mg Documented by: Calcitriol (Calcitrol 0.25 Mcg Cap) 0.5 mcg PO DAILY [facility] Last Admin: 09/04/21 09:00 Dose: 0.5 mcg Documented by: Carvedilol (Carvedilol 12.5 Mg Tab) 12.5 mg PO BID [facility] Last Admin: 09/04/21 21:35 Dose: 12.5 mg Documented by: Docusate Sodium (Docusate Na 100 Mg Cap) 100 mg PO BID [facility] Last Admin: 09/04/21 21:34 Dose: 100 mg Documented by: Enteral Nutritional Formula (Nepro Shake 237 Ml Can) 240 ml PO TID [facility] Last Admin: 09/04/21 21:00 Dose: Not Given Documented by: Epoetin Gaston (Epoetin 4,000 Unit/Ml Vial) 4,000 unit SQ M,W,F [facility] Last Admin: 09/04/21 17:00 Dose: 4,000 unit Documented by: Famotidine (Famotidine 20 Mg/2 Ml Vial) 20 mg IV DAILY [facility]; Protocol Last Admin: 09/04/21 12:00 Dose: 20 mg Documented by: Furosemide (Furosemide 40 Mg/4 Ml Vial) 40 mg IV Q6H [facility] Last Admin: 09/04/21 18:00 Dose: 40 mg Documented by: Isosorbide Dinitrate (Isosorbide Dinit 5 Mg Tab) 10 mg PO TID [facility] Last Admin: 09/04/21 21:00 Dose: Not Given Documented by: Morphine Sulfate (Morphine 2 Mg/Ml Syr) 2 mg IV Q4HP PRN PRN Reason: Pain scale 5-7 (Moderate) Last Admin: 09/03/21 10:40 Dose: 2 mg Documented by: Ondansetron HCl (Ondansetron 4 Mg/2 Ml Vial) 4 mg IV Q4HP PRN PRN Reason: NAUSEA / VOMITING Last Admin: 09/04/21 04:25 Dose: 4 mg Documented by: Sodium Chloride (Flush Normal Saline 10 Ml) 10 ml IV BID [facility] Last Admin: 09/04/21 21:40 Dose: 10 ml Documented by: Microbiology Results 09/02/21 19:41 Blood - Blood Aerobic Blood Culture - Preliminary 09/02/21 19:41 Blood - Blood Blood Culture Gram Stain - Preliminary 09/02/21 19:41 Blood - Blood Anaerobic Blood Culture - Preliminary No growth in 24 hours. 09/02/21 19:46 Blood - Blood Aerobic Blood Culture - Preliminary No growth in 24 hours. 09/02/21 19:46 Blood - Blood Anaerobic Blood Culture - Preliminary No growth in 24 hours. Assessment/ Plan: Nephrology No dyspnea No chest pain Feeling better today No acute events overnight Vitals, medications, blood work and imaging reviewed in the chart General: In no apparent distress, Cooperative HEENT: Mucous membr. moist/pink Neck: Supple Respiratory: Clear to auscultation bilaterally Cardiovascular: Regular rate/rhythm, Edema Gastrointestinal: Soft and benign, Non-distended Musculoskeletal: No clubbing, No contractures Integumentary: No rashes, No cyanosis Neurological: Normal speech Laboratory Data (last 24 hrs) 09/02/21 17:39: PT 11.6, INR 1.01 09/02/21 17:39: WBC 6.20, Hgb 10.6 L, Hct 32.3 L, Plt Count 120 L 09/02/21 17:39: Sodium 134 L, Potassium 3.7, BUN 50 H, Creatinine 7.89 H*, Glucose 135 H, Magnesium 1.9, Total Bilirubin 0.4, AST 67 H, ALT 37, Alkaline Phosphatase 102 Imagings Data: EXAM DESCRIPTION: CT - Stone Protocol - 09/02/2021 7:55 pm CLINICAL HISTORY: Abdominal pain. COMPARISON: None. TECHNIQUE: Computed axial tomography of the abdomen pelvis was obtained without oral or IV contrast. Lack of IV and oral contrast limits evaluation of solid organs, bowel, and vessels. Coronal reformatted images were obtained and reviewed. All CT scans are performed using dose optimization technique as appropriate and may include automated exposure control or mA/KV adjustment according to patient size. FINDINGS: The kidneys are mildly diminished in size. A renal calculus is not seen. An ureteral calculus is not noted. 1 millimeter bladder calculus. The spleen is mildly enlarged. The pancreas, adrenals and liver appear grossly normal. Diverticula stem from the colon without evidence of diverticulitis. Prostate gland is mildly to moderately enlarged. Percutaneous catheter has its tip in the left pelvis. There is a small to moderate amount of ascites. IMPRESSION: Kidneys are mildly diminished in size presumably secondary to chronic disease. 1 millimeter bladder calculus Small to moderate amount of ascites EXAM DESCRIPTION: [facility] Single View09/02/2021 5:39 pm CLINICAL HISTORY: Weakness COMPARISON: 2018 FINDINGS: Mild bilateral interstitial lung opacities. The heart is mildly to moderately enlarged. Pacemaker leads are in place. IMPRESSION: Mild bilateral interstitial lung opacities probably mild interstitial pulmonary edema Conclusions/Impression: ESRD -Continue current PD prescription Peritonitis? -Nurse states she sent the PD fluid for Cell count, gram stain and culture -Cefepime q48h -Check vanco level in the am Hyponatremia -Continue Lasix Hypokalemia -Replete potassium HTN with CKD/ CHF -Increase Coreg BID -Start Amlodipine daily -Restart Isosorbide Diastolic CHF, A/C -Continue Lasix q6h DM II with CKD -Consider RISS Severe malnutrition -Encourage nutrition Anemia in CKD -Continue Retacrit CKD MBD -Continue calcitriol
[2021-09-04] MEDS ORDERED: CEFEPIME 1 GM in NA CHLORIDE 0.9% 100 ML IV SCH (23:00)
[2021-09-05] MEDS: FUROSEMIDE 40 MG/4 ML VIAL IV SCH ×4 (00:46→17:02)
[2021-09-05 04:18] LABS: Absolute Lymphocytes (CBC) 0.2 K/uL (0.7-4.9); Hematocrit 29.2 % (39.6-49.0); MPV 9.4 fL (7.6-11.3); RBC Red Blood Cell Count 3.25 M/uL (4.33-5.43)
[2021-09-05 05:03] LABS: ALT/SGPT 31 U/L (12-78); AST/SGOT 32 U/L (15-37); Albumin 2.3 g/dL (3.4-5.0); Alkaline Phosphatase 82 U/L (45-117); BUN Blood Urea Nitrogen 47 mg/dL (7-18); Bicarbonate 27 mmol/L (21-32); Bilirubin Total 0.5 mg/dL (0.2-1.0); Glucose Level 117 mg/dL (74-106); Magnesium 1.7 mg/dL (1.8-2.4); Phosphorus 4.5 mg/dL (2.5-4.9); Potassium 3.5 mmol/L (3.5-5.1); Protein, Total 5.1 g/dL (6.4-8.2); Sodium Level 135 mmol/L (136-145)
[2021-09-05 05:05] LABS: NT PRO-BNP > 175000 pg/mL (<450)
[2021-09-05] MEDS ORDERED: POTASSIUM CL SA 10 MEQ TAB PO ONE (08:00)
[2021-09-05] MEDS: APIXABAN 2.5 MG TABLET PO SCH ×2 (08:26→20:30)
[2021-09-05] MEDS: AMLODIPINE 5 MG TAB PO SCH (08:27)
[2021-09-05] MEDS: DOCUSATE NA 100 MG CAP PO SCH ×2 (08:27→18:59)
[2021-09-05] MEDS: CALCITROL 0.25 MCG CAP PO SCH (08:27)
[2021-09-05] MEDS: ISOSORBIDE DINIT 5 MG TAB PO SCH ×3 (08:28→20:30)
[2021-09-05] MEDS: FAMOTIDINE 20 MG/2 ML VIAL IV SCH (08:29)
[2021-09-05] MEDS: NEPRO SHAKE 237 ML CAN PO SCH ×3 (08:30→20:31)
[2021-09-05] MEDS: carvediloL 12.5 MG TAB PO SCH ×2 (08:32→20:30)
[2021-09-05] MEDS ORDERED: VANCOMYCIN 1 GM in NA CHLORIDE 0.9% 250 ML IVPB SCH (11:00)
[2021-09-05] MEDS ORDERED: VANCOMYCIN 1.75 GM in NA CHLORIDE 0.9% 500 ML IVPB ONE (12:00)
[2021-09-05] MEDS: ONDANSETRON 4 MG/2 ML VIAL IV PRN (12:19)
--- NOTE | 2021-09-05 14:02 | RAD REPORT ---
EXAM DESCRIPTION: RAD - Shoulder Right 2 View - 09/05/2021 1:56 pm CLINICAL HISTORY: shoulder pain, fall COMPARISON: No comparisons FINDINGS: Mild AC joint and glenohumeral joint arthritic changes are present. No acute fracture or d islocation is seen.
--- NOTE | 2021-09-05 14:04 | RAD REPORT ---
EXAM DESCRIPTION: RAD - Lumbar Spine 3 Views - 09/05/2021 1:56 pm CLINICAL HISTORY: back pain, fall Radiculopathy COMPARISON: L Spine With Bending Views dated 03/08/2018; Stone Protocol dated 09/02/2021 FINDINGS: Mild anterior wedge compression deformity affects the L1 vertebral body. This was not pres ent on the 2018 prior radiograph, but is noted on the most recent CT study from a few days ago. This may be a subacute injury. Consider MRI followup for further evaluation. Moderate spondylosis at the lumbosacral junction. Heavy atherosclerosis of the aorta. IMPRESSION: Mild anterior wedge compression deformity of L1 as detailed.
--- NOTE | 2021-09-05 16:45 | PN ---
Date of Progress Note: 09/05/2021 Subjective: The patient was seen and examined at bedside. He seems significantly short of breath. He states that he was unable to do dialysis last night because of technical issues. He is unable to tell me his PD prescription. I have tried in vain to contact his on-call dialysis nurse and I have s pent about 45 minutes trying to contact the nurse but was unsuccessful. The patient is going for a c hest x-ray this morning. Physical Examination: Vital Signs: Temperature of 97.8, pulse rate of 96, respiratory rate of 22, and blood pressure 140/6 0. General: He appears in [id number] distress, shortness of breath. HEENT: Atraumatic head. Lungs: Auscultation of the lungs revealed diminished breath sounds bilaterally with crackles at base s. Heart: Auscultation of the heart revealed regular rate and rhythm. Abdomen: Soft, nontender with some mild distention. No tenderness. No guarding. No rebound is not ed. PD catheter in place with no evidence of any exit site infection. Extremities: Lower extremities showed no evidence of edema. Laboratory Data: At this time showing sodium of 135, which is about the same as the last couple of d ays. Other labs are consistent with ESRD. ProBNP was elevated and C-reactive protein was 47.7 and p rocalcitonin was elevated as well. CBC showing WBC count of 3.3, hemoglobin of 9.7, hematocrit of 29 .2, and platelet count of 116. His blood cultures are so far negative and he has had an extremity ve nous study done yesterday which showed bilateral upper extremity thrombosis with decreased thrombus c ompared to the ultrasound from previously which was done in May. Current Medications: Include Tylenol, amlodipine 10 mg a day, Eliquis 2.5 mg b.i.d., calcitriol 0.5 mcg daily, carvedilol 25 mg b.i.d., Retacrit 4000 units subcutaneous Tuesday, Tuesday, Tuesday, famot idine, Lasix 40 mg IV q.6 hours, isosorbide, morphine p.r.n., vancomycin 1 time dose was given. Impression: 1.End-stage renal disease, on dialysis. The patient is supposed to be doing peritoneal dialysis, bu t I am concerned that he is unable to do it at this time because of physical debility and weakness an d unfortunately we do not have any acute peritoneal dialysis nurse available in the hospital. I have tried in vain to contact the support center to help fix his PD prescription and help him trouble aria ot his dialysis machine, however, have not been able to do so. If this persists and the patient cont inues to have worsening shortness of breath we may not have a choice but to switch him over to hemodi alysis if he is unable to be transferred out because of unavailability of PD nurse here. 2.Anemia secondary to chronic disease. 3.COVID-19 pneumonia. The patient is currently not getting any active treatment for COVID-19 pneumo roel either. Plan: Overall the patient's condition seems to be slightly worse. So far there is no evidence of an y peritonitis at this time. However, we have not been able to send off any PD fluid for culture. Cl inically, he does not seem to have any peritonitis. His drain bag showed no evidence of any infectio n or cloudy effluent. He will need to start doing peritoneal dialysis by himself tonight or with ass istance of his family members, which I will try to get in touch with. If not we will need to switch him over to hemodialysis. Otherwise, if he is not getting any other treatment at this time he is oka y to be discharged for followup with his primary supplier quality engineer. I will try to get in touch with his f amily members and explain them the situation. We will follow up on the chest x-ray reports and we wi ll follow up closely. WILEY/JOSEL Voice ID: [id number] Report ID: [id number]
[2021-09-05] MEDS ORDERED: NA CHLORIDE 0.9% 100 ML ONE (19:42)
[2021-09-05] MEDS ORDERED: CEFEPIME 1 GM/VIAL ONE (19:46)
--- NOTE | 2021-09-05 21:57 | PN ---
Date of Progress Note: 09/05/2021 Subjective: The patient was seen this morning for followup. He was sitting at bedside. No new comp laints or problems reported. No abdominal pain. No nausea or vomiting. He is complaining of some r ight shoulder pain and lower back pain since he fell down. Objective: Vital Signs: Reviewed. HEENT: Unremarkable. Lungs: Clear to auscultation. Heart: Heart sounds normal. Abdomen: Soft. Bowel sounds normal. No guarding, rigidity, tenderness, or distention. Extremities: No leg edema. Laboratory Data: Sodium 135, potassium 3.5, chloride 99, bicarb 27, BUN 47, creatinine 2.32, glucose 117. Liver function test unremarkable. Procalcitonin 14.5. Impression: 1.Subacute bacterial peritonitis. 2.End-stage renal disease, on peritoneal dialysis. 3.Anemia, due to chronic kidney disease. 4.Thrombocytopenia. 5.Hypertension. 6.Deep vein thrombosis, bilateral upper extremities. 7.Venous Doppler results reviewed with the patient. Plan: He was advised to continue Eliquis per order. We will go ahead and get an x-ray of the right shoulder and lumbar spine. Continue to follow with program scheduler. The patient is getting his peritoneal dialysis at nighttime and his son is assisting him with that. OSCAR/MODL Voice ID: [id number] Report ID: [id number]
--- NOTE | 2021-09-05 22:18 | HP ---
Date of Admission: 09/03/2021 Chief Complaint: Fall, nausea, vomiting. History Of Present Illness: This is a 76-year-old male patient who has end-stage renal disease, on p eritoneal dialysis, lives at home, has had some frequent falls, and recently, he fell down and starte d to have some abdominal discomfort with some nausea, vomiting, and he noted that his peritoneal flui d that was during the peritoneal dialysis instead of clear it started to look cloudy. With all this, he came into emergency room. After he was evaluated, we were concerned about possibility of subacut e bacterial peritonitis and the patient's hydroelectric plant operator is someone out of town, but he does not know t he name, and the emergency room did try to transfer him to a tertiary hospital, but we were not succe ssful, and after multiple attempts at different hospitals, we were not able to transfer him, so he wa s admitted to our hospital with Nephrology consult. The patient's son agreed to provide peritoneal d ialysis while in our hospital as our hydroelectric plant operator had informed that they do not have any trained staf f to provide peritoneal dialysis at their hospital. The patient's COVID test came back positive. He denies any shortness of breath. Allergies: NO KNOWN ALLERGIES. Medications: According to office records, he is on amlodipine 5 mg daily, aspirin 81 mg daily, Eliq uis 2.5 mg b.i.d., which apparently he is not taking it, atorvastatin 40 mg daily at bedtime, carvedi lol 12.5 mg 2 times a day, isosorbide mononitrate 30 mg daily, losartan 50 mg daily, magnesium oxide 400 mg a day, pantoprazole 40 mg p.o. daily, sertraline 50 mg p.o. daily, tamsulosin 0.4 mg p.o. eugenio y, vitamin B12 1000 mcg p.o. daily. Review of Systems: Constitutional: As mentioned above. GI: As mentioned above. All other systems reviewed and negative. Past Medical History: Significant for vocal cord paralysis post intubation on May 23, 2018, ca using chronic hoarseness of voice, type 2 diabetes mellitus, hypertension, mixed hyperlipidemia, ashvin nary artery disease, gastroesophageal reflux disease, gastroparesis, diverticulosis, end-stage renal disease on peritoneal dialysis since 2016, anemia due to chronic kidney disease, thrombocytopenia, an xiety, depression, post-traumatic stress disorder, and insomnia. 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 Family History: Father , had heart disease. Mother , had asthma. Social History: Negative for alcohol and smoking. Immunization History: The patient had his COVID-19 vaccine on September 20, 2020, and October 18. Physical Examination: Vital Signs: Temperature 97.6, pulse 91, respiratory rate 15, blood pressure 167/85, oxygen saturati on 99%, height 6 feet 4 inches. Weight 200 pounds. General: Awake, alert, oriented, not in distress. HEENT: Head atraumatic, normocephalic. Conjunctivae nonerythematous. Sclerae white. Mouth, no thr ush or edema noted. Ears/Nose, no mass, lesion, discharge noted. Neck: Supple. No JVD, lymph nodes, bruit, thyromegaly noted. Lungs: Bilateral good equal air entry. Clear to auscultation. No rhonchi. No rales. Heart: Normal heart sounds, no murmur or gallop. Abdomen: The patient has peritoneal dialysis catheter present over anterior abdominal wall. Inserti on site appears normal. Abdomen is soft, bowel sounds normal. No guarding, rigidity, tenderness, or distention. Bowel sounds normal. Extremities: No leg edema. No calf tenderness. Skin: Right upper extremity has superficial skin laceration. No bleeding. No discharge. The patie nt has mild swelling of the right upper extremity. Lymphatics: No lymph node enlargement in neck, supraclavicular, infraclavicular region. Neuro: No focal neurological deficit. Chest: Unremarkable. External Genitalia: Deferred. Rectal: Deferred. Laboratory Data: White count 6.2, hemoglobin 10.6, platelets 120. This was last night when he came into ER. This morning white count 3.7, hemoglobin 9, platelets 113. Yesterday sodium 134, potassium 3.7, chloride 96, bicarb 31, BUN 50, creatinine 7.89, glucose 135, AST 67, troponin 0.17, procalcito magda 23.10. COVID-19 test positive. CAT scan of the abdomen shows evidence of ascites, 1 mm bladder calculus, benign prostatic hypertrophy and diverticulosis. CAT scan of the facial bone was negative for any fracture. CAT scan of the head and C-spine was negative for any acute finding. Chest x-ray showed changes of pulmonary edema. Impression: 1.Subacute bacterial peritonitis. 2.End-stage renal disease, on peritoneal dialysis. 3.Anemia due to chronic kidney disease. 4.Thrombocytopenia. 5.Coronary artery disease. 6.Hypertension. 7.Hyperlipidemia, mixed. 8.Type 2 diabetes mellitus. 9.Gastroesophageal reflux disease. 10.Diverticulosis. 11.Benign prostatic hypertrophy. 12.Gastroparesis due to diabetes. 13.Anxiety. 14.Depression. 15.Insomnia. 16.Post-traumatic stress disorder. Plan: Admit the patient to hospital for further evaluation and management of this problem. We will go ahead and consult hydroelectric plant operator. ER provider informed me that they did not have any specially [facility] staff member to collect the peritoneum fluid for any culture. So, blood culture was done and emp iric antibiotic was started. We will continue this. Follow up on culture results. Home medications will be continued per order. Consult hydroelectric plant operator and follow up with hydroelectric plant operator for end-stage yuriy al disease. We will consult fountain attendant, Dr. Carney, for COVID-19 infection, for which apparently he does not seem to have any problem at this point. His oxygenation is normal without usi ng any oxygen supplementation. OSCAR/MODL Voice ID: [id number]
--- NOTE | 2021-09-05 22:21 | PN ---
Date of Progress Note: 09/04/2021 Subjective: The patient was seen this morning for followup. No new complaints or problems reported by him. Lying in bed, not in distress. Objective: Vital Signs: Reviewed. HEENT: Unremarkable. Lungs: Clear to auscultation. Heart: Sounds normal. Abdomen: Soft. Bowel sounds normal. No guarding, rigidity, tenderness, distention. Extremities: No leg edema. Laboratory Data: White count 3.7, hemoglobin 9, platelets 113. Sodium 135, potassium 3.1, chloride 98, bicarb 27, BUN 44, creatinine 6.91, glucose 198. Impression: 1.Subacute bacterial peritonitis. 2.End-stage renal disease, on peritoneal dialysis. 3.Anemia due to chronic kidney disease. 4.Thrombocytopenia. 5.Hypokalemia. 6.Hypertension. 7.Deep vein thrombosis, bilateral upper extremities. Plan: The patient was prescribed Eliquis 2.5 mg 2 times a day for left upper extremity DVT and this was recently in June 2021, and he had multiple refills on his prescription, but the patient infor med me today that he stopped taking it because it was an expensive medication. He wanted me to write a letter that he can take it to [facility], and they might consider providing this particular medicat ion to him, which we will do so at the time of discharge. We will continue current antibiotics. Jeovanny tinue his Eliquis that was started 2.5 mg 2 times a day. Continue to follow with gang mower operator, and I will see him tomorrow for followup . OSCAR/MODL Voice ID: [id number] Report ID: [id number]
[2021-09-06] MEDS: FUROSEMIDE 40 MG/4 ML VIAL IV SCH ×3 (00:55→12:06)
[2021-09-06] MEDS: CALCITROL 0.25 MCG CAP PO SCH (08:11)
[2021-09-06] MEDS: carvediloL 12.5 MG TAB PO SCH (08:11)
[2021-09-06] MEDS: APIXABAN 2.5 MG TABLET PO SCH (08:12)
[2021-09-06] MEDS: FAMOTIDINE 20 MG/2 ML VIAL IV SCH (08:12)
[2021-09-06] MEDS: AMLODIPINE 5 MG TAB PO SCH (08:12)
[2021-09-06] MEDS: NEPRO SHAKE 237 ML CAN PO SCH ×2 (08:13→14:00)
[2021-09-06] MEDS: DOCUSATE NA 100 MG CAP PO SCH (08:13)
[2021-09-06] MEDS: ISOSORBIDE DINIT 5 MG TAB PO SCH ×2 (08:13→14:11)
[2021-09-06] MEDS ORDERED: levoFLOXacin 500 MG TAB PO ONE (11:00)
--- NOTE | 2021-09-06 11:45 | DS ---
Date of Discharge: 09/06/2021 Disposition: Discharged to go home. Physical Examination: HEENT: Unremarkable. LUNGS: Clear to auscultation. HEART: Sounds normal. ABDOMEN: Soft. Bowel sounds normal. No guarding, rigidity, tenderness, or distention. EXTREMITIES: No leg edema. Mild edema of upper extremity present, unchanged. Laboratory Data: Upon admission on September 02, 2021, white count 6.2, hemoglobin 10.6, platelets 120. Last CBC from yesterday; white count 3.3, hemoglobin 9.7, platelets 116. Initial chemistry: Sodiu m 134, potassium 3.7, chloride 96, bicarb 31, BUN 50, creatinine 7.89, glucose 135. Liver function t ests unremarkable except AST 67. Troponin 0.17, procalcitonin 23.1. Last procalcitonin from 022 was 14.5 with sodium 135, potassium 3.5, chloride 99, bicarb 27, BUN 47, creatinine 7.37, glucose 117. The patient's CAT scan of the head and cervical spine was negative for any acute changes. CAT scan o f the facial bones was negative for any fracture and CAT scan of abdomen and pelvis showed evidence o f fascitis, 1 mm bladder calculus, benign prostatic hypertrophy and diverticulosis. Chest x-ray show ed changes of pulmonary edema. His right shoulder x-ray showed changes of arthritis and lumbar spine x-ray showed evidence of mild compression fracture of L1 spine. Discharge Medications And Instructions: 1.Continue all prior home medications. 2.Use walking cane or walker all the time and avoid any fall or injury. 3.Follow up at my office in 1 month. Following medications and prescriptions will be sent to [facility] from my office : 1.Levaquin 250 mg, take 1 tablet by mouth every other day. 2.Eliquis 2.5 mg, take 1 tablet by mouth 2 times a day. Final Diagnoses: 1.Subacute bacterial peritonitis. 2.End-stage renal disease, on hemodialysis. 3.Deep vein thrombosis, bilateral upper extremity. 4.Anemia due to chronic kidney disease. 5.Thrombocytopenia. 6.Coronary artery disease. 7.Hypertension. 8.Hyperlipidemia, mixed. 9.Type 2 diabetes. 10.Gastroesophageal reflux disease. 11.Diverticulosis. 12.Benign prostatic hypertrophy. 13.Gastroparesis due to diabetes. 14.Anxiety. 15.Depression. 16.Insomnia. 17.Posttraumatic stress disorder. Hospital Course: This is a 76-year-old pleasant male patient who was admitted to the hospital after he came into emergency room after falling down and he also reported that his peritoneal fluid was robin earing cloudy. Please see dictated H and P for more information. After the patient came into our em ergency room, we tried to transfer him to a tertiary care center for higher level of care, but after multiple attempts, we were not able to transfer him, so the patient was admitted to the hospital unde r my service with a Nephrology consultation. He is on peritoneal dialysis at home on a daily basis a nd his son was able to provide this care while he was in the hospital as our clinical trials data coordinator informed us that they did not have any staff at the hospital to provide peritoneal dialysis. The patient contin ued to receive his peritoneal dialysis. Empiric antibiotics were given to him, which was cefepime an d vancomycin for subacute bacterial peritonitis type of problem which was suspected on the basis of h is peritoneal fluid color. I was also notified that there was a staff member to collect the peritone al fluid specimen, so empiric antibiotics were started after blood culture was done. His condition i mproved. Peritoneal fluid improved, back to normal color fluid as I have seen it and as reported by the patient also. Overall, his condition remained stable. He was COVID positive, but he did not hav e any problem with COVID related illness. The patient had left upper extremity DVT and he was prescr ibed Eliquis 2.5 mg 2 times a day about 2 months ago and he says after taking it for a short time, he stopped taking it because of the cost of the medication and he wants me to write a letter that he wi ll pick it up from the office tomorrow and he will submit that letter to [facility], so he can get celestine e Eliquis through [facility], but at the same time until he gets any medication supply from [facility], I have advise d him to at least buy some supply from local pharmacy and start the medication as prescribed. This m orning when I saw him, he was on oxygen 2 L/minute nasal cannula oxygen. His oxygen was discontinued and about 30 minutes after his oxygen was discontinued, room air oxygen saturation was 98%. The pat ient does not need any home oxygen at this point. I did pre parole counseling aide the patient in detail and explained him the importance of using a walking cane or a walker all the time to prevent any fall and injury, e specially it is very important while he is taking anticoagulation therapy to avoid any head injury as it could cause life-threatening bleeding complications and all those details were discussed with him . His venous Doppler of upper extremity had shown bilateral upper extremity thrombosis. OSCAR/MODL Voice ID: [id number] Report ID: [id number]
[2021-09-06 12:07] VITALS: BP 157/60
--- NOTE | 2021-09-06 13:13 | PN ---
Date of Progress Note: 09/06/2021 Subjective: The patient was seen and examined at bedside. He was able to do his peritoneal dialysis last night and he states that he feels okay at this time. He is being discharged by Dr. Huitron. Physical Examination: Vital Signs: Showing temperature of 97.4, pulse rate of 84, respiratory rate of 18, and blood pressu re 157/60. General: He appears in no acute distress. HEENT: Atraumatic head. Lungs: Clear to auscultation. Abdomen: Soft and nontender. Extremities: Without any evidence of edema. PD catheter in place. Laboratory Data: Consistent with ESRD and CBC showing stable hemoglobin, hematocrit, and platelet co unt. No PD fluid cultures have been reported since no fluid was sent off for culture. Current Medications: Have been reviewed. Impression: 1.End-stage renal disease, on peritoneal dialysis. 2.Concern for peritonitis; however, the effluent has been clear and he does not seem to have any cli nical signs of peritonitis, hence in order to avoid unnecessary antibiotics, we will discharge him of f antibiotics at this time. He was counseled on peritonitis signs and was advised to contact his nep hrologist NANCY if he sees anymore signs of cloudy fluid, so cultures can be collected. 3.History of deep vein thrombosis. The patient is being currently discharged on Eliquis. 4.Hypertension, currently stable. 5.Concern for pulmonary edema. The patient is advised to do with peritoneal dialysis tonight after he gets home and use a 4.25% dextrose bag if needed to increase ultrafiltration. He did have about 4 00 cc of ultrafiltration last night with dialysis. He was counseled on salt intake. 6.COVID-19 pneumonia. The patient seems quite asymptomatic from the COVID-19 standpoint. We will c ontinue to monitor and he is okay to be discharged from Nephrology standpoint off antibiotics. This information was communicated with the patient's nurse as well as with the patient in detail. All que stions were answered. Time spent about 45 minutes. VV/MODL Voice ID: [id number] Report ID: [id number]
[2021-09-06 13:20] VITALS: TEMP 98
[2021-09-06 13:32] VITALS: O2SAT 96
== END 2021-09-06 15:36 | disposition home or self-care (01) | DRG 371 ==
LOC: ER 15:07 → ERHOLD 09-03 00:41 → 4TH 09-04 19:26
PROVIDERS: ADMIT Internal Medicine; ATTEND Internal Medicine
DX: K65.2 Spontaneous bacterial peritonitis (principal); N18.6 End stage renal disease; U07.1 COVID-19; I12.0 Hypertensive chronic kidney disease with stage 5 chronic kidney disease or end stage renal disease; I82.623 Acute embolism and thrombosis of deep veins of upper extremity, bilateral; E11.22 Type 2 diabetes mellitus with diabetic chronic kidney disease; K21.9 Gastro-esophageal reflux disease without esophagitis; E78.2 Mixed hyperlipidemia; I25.10 Atherosclerotic heart disease of native coronary artery without angina pectoris; D63.1 Anemia in chronic kidney disease; D69.6 Thrombocytopenia, unspecified; N40.0 Benign prostatic hyperplasia without lower urinary tract symptoms; K57.90 Diverticulosis of intestine, part unspecified, without perforation or abscess without bleeding; F41.9 Anxiety disorder, unspecified; F32.A Depression, unspecified; G47.00 Insomnia, unspecified; E11.43 Type 2 diabetes mellitus with diabetic autonomic (poly)neuropathy; K31.84 Gastroparesis; F43.10 Post-traumatic stress disorder, unspecified; E87.6 Hypokalemia; Z95.810 Presence of automatic (implantable) cardiac defibrillator; Z95.5 Presence of coronary angioplasty implant and graft; Z99.2 Dependence on renal dialysis
CPT/HCPCS: 0240U; 36415; 70450; 70486; 71045; 72100; 72125; 74176; 76377; 80048; 80053; 80076; 80202; 82947; 83036; 83605; 83735; 83880; 84100; 84145; 84484; 84550; 85025; 85610; 85652; 86140; 87040; 87205; 93005; 93970; 99285; J0692; J1644; J1940; J2270; J2405; J3010; J3370; J7040; J7050; P9047; Q5105

== ENCOUNTER 2022-05-24 14:01 | Observation (INO) | payer OTHER, MEDICARE ==
--- OUTSIDE RECORDS SUMMARY | 2022-05-24 14:39 | XMS REPORT | Continuity of Care Document ---
:1945 Author Organization [facility] t Address [address] [place] [address] Care Team Providers Name Role Phone Asked, No Pcp Primary Care Physician Unavailable Dunia Still RN Attending Clinician Unavailable LESLIE Attending Clinician Unavailable Ric Alcocer Attending Clinician Unavailable LESLIE Admitting Clinician Unavailable Ric Alcocer Admitting Clinician Unavailable Krysten Ruiz Admitting Clinician Unavailable Payers Payer Name Policy Type Policy Number Effective Date Expiration Date S ource Problems Condition Condition Condition Status Onset Resolution Last Treating Co mments Source Name Details Category Date Date Treatment Clinician Date No No Disease Methodi additional additional st problems problems Hospit a on file on file l Allergies, Adverse Reactions, Alerts Allergy Allergy Status Severity Reaction(s) Onset Inactive Treating Comm ents Source Name Type Date Date Clinician codeine DA Active U [facility] 8[facility] Clear 00:00: Chinchilla 00 [facility] codeine DA Active U VOMITING [facility] 8-08 Clear 00:00: Chinchilla 00 [facility] codeine DA Active U 2003-08 [facility] 2- [place] 00:[facility]: d 00 [facility] levoflox DA Active U 2003-08 [facility] acin 2- [place] 00:00: d 00 [facility] CODEINE DA Active U 2003-08 [facility] 2-11 [place] 00:[facility]: d [facility] LEVAQUIN DA Active U 2003- [facility] [...] Allergie 00:00: d s 00 [facility] Social History Social Habit Start Date Stop Date Quantity Comments Source History of tobacco Current smoker [facility] Cigarettes smoked 2019-08-01 2019-08-[address] current (pack per 00:00:00 00:00:00 Hospita l day) - Reported Cigarette 2019-08-01 2019-08-01 [facility] pack-years 00:00:00 00:00:00 Hospital Tobacco use and 2019-08-01 2019-08-01 Smokeless tobacco [facility] exposure 00:00:00 00:00:00 non-user Hospital Sex Assigned At [birth year] [facility] 00:00:00 00:00:00 Hospital Smoking Status Start Date Stop Date Source Ex-smoker 2019-08-01 00:00:00 2019-08-01 00:00:00 [facility] Medications This patient has no known medications. Procedures Procedure Date / Time Performed Performing Clinician [facility] santiago [id number] 2021-04-11 00:00:00 AHMMO.01 [facility] [place] [id number] 2021-04-10 00:00:00 BURDA.06 [facility] [place] [id number] 2021-04-10 00:00:00 BURDA.06 [facility] [place] [id number] 2021-04-10 00:00:00 BURDA.06 [facility] [place] [id number] 2021-04-10 00:00:00 BURDA.06 [facility] [place] [id number] 2021-04-10 00:00:00 BURDA.06 [facility] [place] [id number] 2021-04-09 00:00:00 CHRISTOPHER [facility] [place] [id number] 2021-04-09 00:00:00 AHMMO.01 [facility] [place] [id number] 2021-04-08 00:00:00 AHMMO.01 [facility] [place] Plan of Care Planned Activity Planned Date Details Comments Source Future Scheduled 2022-04-28 HEPATITIS B VACCINES [facility] Test 20:49:13 (1 of 3 - 3-dose series) [code = HEPATITIS B VACCINES (1 of 3 - 3-dose series)] Future Scheduled 2022-04-28 COVID-19 VACCINE (#1) [facility] Test 20:49:13 [code = COVID-19 VACCINE (#1)] Future Scheduled 2022-04-28 Hepatitis C screening Me [facility] Test 20:49:13 (procedure) [code = 962211555] Future Scheduled 2022-04-28 SHINGLES VACCINES (1 [facility] Test 20:49:13 of 2) [code = SHINGLES VACCINES (1 of 2)] Future Scheduled 2022-04-28 65+ [facility]CCAL [facility] Test 20:49:13 VACCINE (1 - PCV) [code = 65+ PNEUMOCOCCAL VACCINE (1 - PCV)] Future Scheduled 2022-04-28 [facility]FLUENZA VACCINE [facility] Test 20:49:13 [code = INFLUENZA VACCINE] Encounters Start End Encounter Admission Attending Care Care Encounter Source Date/Time Date/Time Type Type Clinicians Facility Department ID 2022-03-30 2022-03-30 Abstract Cheko [id number] [facility]i 00:00:00 00:00:00 [facility] 09964.1.1 2 3.430.2.7 Hospit a .3.682991 l .8 2022-03-26 2022-03-26 Outpatient [facility] 119 [id number] [place] 00:[place] [id number] [facility] 2022-03-02 2022-03-02 Outpatient [facility] 119 [id number] [place] 03:15:00 03:15:[place] [id number] [facility] 2021-04-06 2021-04-12 Inpatient EM KIMMIE Alcocer INTE.02 [id number] 50 [facility] 13:36:00 17:13:[address] [facility] 46 [facility] 2021-04-06 2021-04-06 Outpatient GREGORIA Alcocer LABO [id number] [facility] 21:22:00 21:22:[address] [facility] 90 [facility] Results Test Description Test Time Test Comments Results Result Comments Source GLUCOSE BEDSIDE TESTING 2021-04-11 14:15:00 Test Item Value Reference Range Interpretation Comme nts GLUCOSE BEDSIDE TESTING (test code = GLUBED) 141 mg/dL 70-110 H GLUCOSE BEDSIDE [id number] 09:40:00 Test Item Value Reference Range Interpretation Comments GLUCOSE BEDSIDE TESTING (test code 140 mg/dL 70-110 H = GLUBED) CBC W/AUTO [id number] 06:25:00 Test Item Value Reference Range Interpretation [...] NT WITH AUTO DIFFERENTI AL. RENAL FUNCTION [id number] 06:16:00 Test Item Value Reference Range Interpretation [...] PHOS) 4.3 MG/DL 2.5-4.9 N CBC W/AUTO [id number] 05:32:00 Test Item Value Reference Range Interpretation [...] code = DIFF/SCN CRITERIA MDIFF) GLUCOSE BEDSIDE [id number] 20:34:00 Test Item Value Reference Range Interpretation Comments GLUCOSE BEDSIDE TESTING (test code 235 mg/dL 70-110 H = GLUBED) - XR CHEST 1 [id number] 13:12:00 [facility] 1945 Sex: M Name: KIRIT PEÑA [facility] : 1945 Age/S: 76 / M [address] [address] Unit #: [id number] Loc: [place] [address] Phys: Deon Mederos MD Acct: [id number] Dis Date: Status: ADM IN PHONE #:[phone] Exam Date: 04/10/2021 1255 FAX #: Reason: s/p ICD EXAMS: CPT: [id number] XR CHEST 1 V 71438 Fluoro Time: DAP (Gy m2): Air Kerma (mGy): EXAMINATION: Frontal chest radiograph INDICATION: s/pICD COMPARISON: 04/06/2021 LOCATION: S17 FINDINGS: Enlarged cardiac silhouette with left chest defibrillator. No definite pleural effusion or pneumothorax. Slightly increased left basilar atelectasis, component of infection not excluded. Possible mild interstitial edema. IMPRESSION: 1. No pneumothorax.2. Slightly increased left basilar opacity. Possible mild interstitial edema. at 1312 Reported and signed by: Lewis Gómez M.D. CC: Deon Mederos MD; Ric Alcocer MD; Krysten Riuz MD PAGE 1 Signed Report Name: [facility]IRIT PEÑ[facility] [place] 1945 Age/S: 76 / M [address] [address] Unit #: [id number] Loc: [place] [address] Phys: Deon Mederos MD Acct: [id number] Dis Date: Status: ADM IN PHONE #: [phone] Exam Date: 04/10/2021 1255 FAX #: Reason: s/p ICD EXAMS: CPT: [id number] XR CHEST 1 V 38964 Fluoro Time: DAP (Gy m2): Air Kerma (mGy): (Continued) Technologist: Tiffanie Malone, RT(R)(CT) Trnscb Date/Time: 04/10/2021 (1312) [email or web address] Orig Print D/T: S: 04/10/2021 (6325) PAGE 2 Signed ReportGLUCOSE BEDSIDE [id number] 11:32:00 Test Item Value Reference Range Interpretation Comments GLUCOSE BEDSIDE TESTING (test code 136 mg/dL 70-110 H = GLUBED) GLUCOSE BEDSIDE [id number] 07:53:00 Test Item Value Reference Range Interpretation Comments GLUCOSE BEDSIDE TESTING (test code 116 mg/dL 70-110 H = GLUBED) BASIC METABOLIC [id number] 06:49:00 Test Item Value Reference Range Interpretation [...] CA) 7.8 MG/DL 8.5-10.1 L RENAL FUNCTION [id number] 06:49:00 Test Item Value Reference Range Interpretation Comments ALBUMIN (test code = ALB) 2.1 G/DL 3.4-5.0 L PHOSPHOROUS (test code = PHOS) 4.0 MG/DL 2.5-4.9 N CBC W/AUTO [id number] 06:42:00 Test Item Value Reference Range Interpretation [...] NT WITH AUTO DIFFERENTI AL. CBC W/AUTO [id number] 05:47:00 Test Item Value Reference Range Interpretation [...] code = DIFF/SCN CRITERIA MDIFF) GLUCOSE BEDSIDE [id number] 20:52:00 Test Item Value Reference Range Interpretation Comments GLUCOSE BEDSIDE TESTING (test code 175 mg/dL 70-110 H = GLUBED) GLUCOSE BEDSIDE [id number] 17:02:00 Test Item Value Reference Range Interpretation Comments GLUCOSE BEDSIDE TESTING (test code 144 mg/dL 70-110 H = GLUBED) GLUCOSE BEDSIDE [id number] 11:28:00 Test Item Value Reference Range Interpretation Comments GLUCOSE BEDSIDE TESTING (test code 104 mg/dL 70-110 N = GLUBED) CBC W/AUTO [id number] 08:33:00 Test Item Value Reference Range Interpretation [...] MANUAL DIFF REQUIRED NO DIFF/SCN CRITERIA SLIDE Dony FUNK (test code = MDIFF) CONSISTA NT WITH AUTO DIFFERENTI AL. GLUCOSE BEDSIDE [id number] 07:55:00 Test Item Value Reference Range Interpretation Comments GLUCOSE BEDSIDE TESTING (test code 131 mg/dL 70-110 H = GLUBED) BASIC METABOLIC [id number] 06:33:00 Test Item Value Reference Range Interpretation [...] CA) 7.7 MG/DL 8.5-10.1 L RENAL FUNCTION [id number] 06:33:00 Test Item Value Reference Range Interpretation Comments ALBUMIN (test code = ALB) 2.0 G/DL 3.4-5.0 L PHOSPHOROUS (test code = PHOS) 3.8 MG/DL 2.5-4.9 N [id number] 06:33:00 Test Item Value Reference Range Interpretation Comments MAGNESIUM (test code = MAG) 2.1 MG/DL 1.8-2.4 CBC W/AUTO [id number] 06:21:00 Test Item Value Reference Range Interpretation [...] code = DIFF/SCN CRITERIA MDIFF) GLUCOSE BEDSIDE [id number] 20:25:00 Test Item Value Reference Range Interpretation Comments GLUCOSE BEDSIDE TESTING (test code 242 mg/dL 70-110 H = GLUBED) CBC W/AUTO [id number] 14:15:00 Test Item Value Reference Range Interpretation [...] NT WITH AUTO DIFFERENTI AL. GLUCOSE BEDSIDE [id number] 11:11:00 Test Item Value Reference Range Interpretation Comments GLUCOSE BEDSIDE TESTING (test code 144 mg/dL 70-110 H = GLUBED) [id number] 11:09:00 Test Item Value Reference Range Interpretation Comments MAGNESIUM (test code = MAG) 1.8 MG/DL 1.8-2.4 N CBC W/AUTO [id number] 11:05:00 Test Item Value Reference Range Interpretation [...] code = DIFF/SCN CRITERIA MDIFF) GLUCOSE BEDSIDE [id number] 08:03:00 Test Item Value Reference Range Interpretation Comments GLUCOSE BEDSIDE TESTING (test code 101 mg/dL 70-110 N = GLUBED) RENAL FUNCTION [id number] 02:28:00 Test Item Value Reference Range Interpretation [...] PHOS) 3.8 MG/DL 2.5-4.9 N RENAL FUNCTION [id number] 06:15:00 Test Item Value Reference Range Interpretation [...] code = PHOS) 4.4 MG/DL 2.5-4.9 N [id number] 06:15:00 Test Item Value Reference Range Interpretation Comments MAGNESIUM (test code = MAG) 1.6 MG/DL 1.8-2.4 L HGB [id number] 05:17:00 Test Item Value Reference Range Interpretation Comments HEMOGLOBIN (test code = HGB) 11.2 G/DL 12.3-15.9 L HEMATOCRIT (test code = HCT) 35.3 % 35.8-46.7 L PERITONEAL FLD CELL [id number] 21:21:00 Test Item Value Reference Range Interpretation [...] COMMENT (test code = COMPT) GLUCOSE BEDSIDE [id number] 21:03:00 Test Item Value Reference Range Interpretation Comments GLUCOSE BEDSIDE TESTING (test code 160 mg/dL 70-110 H = GLUBED) GLUCOSE BEDSIDE [id number] 16:13:00 Test Item Value Reference Range Interpretation Comments GLUCOSE BEDSIDE TESTING (test code 122 mg/dL 70-110 H = GLUBED) BASIC METABOLIC [id number] 15:43:00 Test Item Value Reference Range Interpretation [...] (test code = CHOL/HDL RATIOS: RISK CHOLHDL) MALE FEMALE1/2 AVERAGE 3.43 3.27AVERAG E 4.97 4.442X AVERAGE 9.55 7.053X AVERAGE 23.39 11.04 NOTE THAT THE REFERENCE VALUE IS RELATED TO RISK LEVELS ASRECOMMENDED B Y [facility] . [Automated mess age] The system which [employer] nerated this result tra nsmitted reference range : 0-. The reference range was not used to interpr et this result as normal/abnormal . HDL CHOLESTEROL 46 MG/DL 40-59 N (test code = HDL) NON-HDL CHOLESTEROL 104 mg/dL <130 (test code = NHDL) LIPOPROTEIN LDL 78 MG/DL 0-129 N <100 OPTIMAL 100 - 129 (test code = LDL) NEAR OPTIM AL/ABOVE [id number] - 15 9 [id number] - 189 HIGH>OR= 190 VE RY HIGHNOTE THAT G UIDELINES ARE PROVIDED BY NATIONAL CHOLESTEROLEDUC ATION PROGRAM ADULT T REATMENT PANEL III LDL/HDL (test code 1.69 Ratio See_Comment N [Automat ed message] The = LDL/HDL) system which [employer] nerated this result tra nsmitted reference range : 1.48-3.22 Avg. The reference range was not used to interpr et this result as normal/abnormal . NT PRO-BRAIN NATRIURETIC [id number] 15:43:00 Test Item Value Reference Range Interpretation Comments NT PRO-BRAIN NATRIURETIC PEPTI > 472212 PG/ML 0-100 H (test code = PROBNP) BASIC METABOLIC [id number] 14:57:00 Test Item Value Reference Range Interpretation [...] (test code = CHOL/HDL RATIOS: RISK CHOLHDL) MALE FEMALE1/2 AVERAGE 3.43 3.27AVERAG E 4.97 4.442X AVERAGE 9.55 7.053X AVERAGE 23.39 11.04 NOTE THAT THE REFERENCE VALUE IS RELATED TO RISK LEVELS ASRECOMMENDED B Y [facility] . [Automated mess age] The system which [employer] nerated this result tra nsmitted reference range : 0-. The reference range was not used to interpr et this result as normal/abnormal . HDL CHOLESTEROL 46 MG/DL 40-59 N (test code = HDL) NON-HDL CHOLESTEROL 104 mg/dL <130 (test code = NHDL) LIPOPROTEIN LDL 78 MG/DL 0-129 N <100 OPTIMAL 100 - 129 (test code = LDL) NEAR OPTIM AL/ABOVE [id number] - 15 9 [id number] - 189 HIGH>OR= 190 VE RY HIGHNOTE THAT G UIDELINES ARE PROVIDED BY NATIONAL CHOLESTEROLEDUC ATION PROGRAM ADULT T REATMENT PANEL III LDL/HDL (test code 1.69 Ratio See_Comment N [Automat ed message] The = LDL/HDL) system which [employer] nerated this result tra nsmitted reference range : 1.48-3.22 Avg. The reference range was not used to interpr et this result as normal/abnormal . NT PRO-BRAIN NATRIURETIC [id number] 14:57:00 Test Item Value Reference Range Interpretation Comments NT PRO-BRAIN NATRIURETIC PEPTI (test PG/ML 0-100 code = PROBNP) BASIC METABOLIC [id number] 14:41:00 Test Item Value Reference Range Interpretation [...] See_Comment [Autom ated message] LDL/HDL) The system [employer] h generated this result transmitted ref erence range: 1.48-3.2 2 Avg. The reference r jae was not used to interpret this result as normal/abnor mal. NT PRO-BRAIN NATRIURETIC [id number] 14:41:00 Test Item Value Reference Range Interpretation Comments NT PRO-BRAIN NATRIURETIC PEPTI (test PG/ML 0-100 code = PROBNP) GLUCOSE BEDSIDE [id number] 11:25:00 Test Item Value Reference Range Interpretation Comments GLUCOSE BEDSIDE TESTING (test code 123 mg/dL 70-110 H = GLUBED) GLUCOSE BEDSIDE [id number] 08:55:00 Test Item Value Reference Range Interpretation Comments GLUCOSE BEDSIDE TESTING (test code = 99 mg/dL 70-110 N GLUBED) [id number] 07:45:00 Test Item Value Reference Range Interpretation [...] method. Completed by Nursing: NOCOVID 19 INHOUSE [id number] 05:55:00 Test Item Value Reference Range Interpretation Comments COVID 19 INHOUSE AG NEGATIVE Negative Per manu facturer, (test code = negative result s should [id number]) be treated aspr esumptive and, if inconsi stent with clinical signs andsymptoms or necessary for patient man agement, should betested with an alternative mol ecular assay. Negative resultsdo not preclude SA RS-CoV-2 infection and s hould not be usedas the s ole basis for patient man agement decisions. Nega tive results should be considered in t he context of apatient's r ecent exposures, hist ory, presence of cli nicalsigns and symptoms co nsistent with COVID-19. [id number] 04:10:00 Test Item Value Reference Range Interpretation [...] Completed by Nursing: NO- XR CHEST 1 [id number] 04:02:00 [facility] 1945 Sex: M Name: KIRIT PEÑA [place] : 1945 Age/S: 76 / M [address] [address] Unit #: [id number] Loc: [place] [address] Phys: Giovani Marrero MD Acct: [id number] Dis Date: Status: REG ER PHONE #: [phone] Exam Date: 04/06/2021 035 FAX #: Reason: Abdominal Pain EXAMS: CPT: [id number] XR CHEST 1V 12373 Fluoro Time: DAP (Gy m2): Air Kerma (mGy): AFTER HOURS SERVICE ON: 04/06/2021 4:02 AM AP Portable Chest Location Code M12 HISTORY: Abdominal Pain FINDINGS: There is mild central vascular congestion and prominence of the central pulmonary vessels. Cardiac silhouette is mildly enlarged. There is no pleural effusion. There is no pneumothorax. IMPRESSION: Enlarged cardiac silhouette and mild central pulmonary vascular congestion. at 0402 Reported and signed by: Rohit Kelley M.D. CC: PAGE 1 Signed Report Name: KIRIT PEÑA [place] : 1945 Age/S: 76 / M [address] [address] Unit #: [id number] Loc: [place] [address] Phys: Giovani Marrero MD Acct: [id number] Dis Date: Status: REG ER PHONE #: [phone] Exam Date: 04/06/2021 035 FAX #: Reason: Abdominal Pain EXAMS: CPT: [id number] XR CHEST 1 V 31506 Fluoro Time: DAP (Gy m2): Air Kerma (mGy): (Continued) Technologist: Kavitha Todd, RT(R)(CT)Trnscb Date/Time: 04/06/2021 (401) [id number] Orig Print D/T: S: 04/06/2021 (1387) PAGE 2 Signed [facility]THE [facility] W/AUTO [id number] 02:27:00 Test Item Value Reference Range Interpretation [...] DIFF REQUIRED NO DIFF/SCN CRITERIA SLIDE R EVSTEPHW (test code = MDIFF) CONSISTA NT WITH AUTO DIFFERENTI AL. BASIC METABOLIC [id number] 00:30:00 Test Item Value Reference Range Interpretation [...] 8.5-10.1 L Completed by Nursing: NOHEPATIC FUNCTION [id number] 00:30:00 Test Item Value Reference Range Interpretation [...] N code = ALKP) Completed by Nursing: [id number] 00:30:00 Test Item Value Reference Range Interpretation Comments LIPASE (test code = LIP) 31 Unit/L 114-286 L Completed by Nursing: [id number] 00:30:00 Test Item Value Reference Range Interpretation [...] yby method. Completed by Nursing: NOCBC W/AUTO [id number] 00:30:00 Test Item Value Reference Range Interpretation [...] code = DIFF/SCN CRITERIA MDIFF) BASIC METABOLIC [id number] 00:14:00 Test Item Value Reference Range Interpretation [...] 8.5-10.1 L Completed by Nursing: NOHEPATIC FUNCTION [id number] 00:14:00 Test Item Value Reference Range Interpretation [...] 50-136 code = ALKP) Completed by Nursing: [id number] 00:14:00 Test Item Value Reference Range Interpretation Comments LIPASE (test code = LIP) 31 Unit/L 114-286 L Completed by Nursing: [id number] 00:14:00 Test Item Value Reference Range Interpretation Comments TROPONIN-I (test code = TROPI) NG/ML 0.000-0.045 Completed by Nursing: NO
[2022-05-24 14:48] LABS: Absolute Lymphocytes (CBC) 0.6 K/uL (0.7-4.9); Hematocrit 31.6 % (39.6-49.0); Lymphocytes % 7.1 % (15.3-44.8); MCV 84.2 fL (80-100); RBC Red Blood Cell Count 3.75 M/uL (4.33-5.43)
[2022-05-24 14:58] LABS: Protime INR 1.1
[2022-05-24 15:31] LABS: Magnesium 1.8 mg/dL (1.8-2.4)
[2022-05-24 15:35] LABS: Potassium 2.3 mmol/L (3.5-5.1); Troponin High Sensitivity 138.3 pg/mL (<58.9)
--- NOTE | 2022-05-24 16:21 | RAD REPORT ---
EXAM DESCRIPTION: RAD - Chest Single View - 05/24/2022 4:03 pm CLINICAL HISTORY: Bradycardia COMPARISON: Portable 09/02/2021 TECHNIQUE: AP portable chest image was obtained 05/24/2022 4:03 pm . FINDINGS: Fibrotic lung pattern matches comparison. No superimposed failure, mass or focal infiltrat e. Left subclavian defibrillator is in place. Heart and vasculature are normal. No measurable pleural effusion and no pneumothorax. No acute bony abnormality seen. No acute aortic findings suspected. IMPRESSION: No acute cardiopulmonary process. Above detailed chest findings are similar to comparison.
--- NOTE | 2022-05-24 16:31 | ER ---
Nurse's Notes [facility] Name: Shahid Cunningham Age: 77 yrs Sex: Male : 1945 Arrival Date: 05/24/2022 Time: 14:15 Bed 20 Private MD: Diagnosis: Hypokalemia;Bradycardia, unspecified;Essential (primary) hypertension;Anemia, unspecified Presentation: 05/24 14:00 Chief complaint: EMS states: toned out to [place] clinic for bradycardia. Called [facility] tp1 from home for low heart rate, heart rates was in low 30s but denied transport. PT drove to [place] and heart rate was in low 30s. EMS reported pt was feeling tired and lethargic this morning. PT denies chest pain, SOB, or dizziness. 14:00 Coronavirus screen: Vaccine status: Patient reports receiving the 2nd dose of the covid tp1 vaccine. Ebola Screen: Patient negative for fever greater than or equal to 101.5 degrees Fahrenheit, and additional compatible Ebola Virus Disease symptoms Patient denies exposure to infectious person. Patient denies travel to an Ebola-affected area in the 21 days before illness onset. Initial Sepsis Screen: Does the patient meet any 2 criteria? No. Patient's initial sepsis screen is negative. Does the patient have a suspected source of infection? No. Patient's initial sepsis screen is negative. Risk Assessment: Do you want to hurt yourself or someone else? Patient reports no desire to harm self or others. Onset of symptoms was May 24, 2022. 14:00 Method Of Arrival: EMS: [facility] tp1 14:00 Acuity: TIBURCIO 2 tp1 14:00 Care prior to arrival: Glucose check: 166. tp1 Triage Assessment: 14:10 General: Appears in no apparent distress. comfortable, Behavior is calm, cooperative. tp1 Pain: Denies pain. EENT: No signs and/or symptoms were reported regarding the EENT system. Neuro: Level of Consciousness is awake, alert, obeys commands, Oriented to person, place, time, situation. Cardiovascular: Reports fatigue, Denies chest pain, shortness of breath, Patient's skin is warm and dry. Pulses are palpable in right radial artery and left radial artery irregular. Respiratory: Airway is patent Respiratory effort is even, unlabored. GI: Abdomen is flat, non-distended, Peritoneal dialysis catheter capped. Site is clean and dry. : No signs and/or symptoms were reported regarding the genitourinary system. :. Derm: Skin is pink, warm \\T\\ dry. Musculoskeletal: Circulation, motion, and sensation intact. Historical: - Allergies: 14:30 Codeine; tp1 - Home Meds: 14:30 atorvastatin oral [Active]; Aspirin Oral [Active]; Furosemide Oral [Active]; calcitriol tp1 oral [Active]; carvedilol oral [Active]; Mirtazapine Oral [Active]; Vitamin B-12 Oral [Active]; hydroxyzine HCl Oral [Active]; - PMHx: 14:30 "agent orange"; DM; Hypertensive disorder; skin ca; vocal cord damage; renal failure; tp1 - PSHx: 14:30 L wrist SX from infection; pacemaker; squamous cell removals; tp1 - Immunization history:: Client reports receiving the 2nd dose of the Covid vaccine. - Social history:: Smoking status: Patient denies any tobacco usage or history of. Screenin:00 Abuse screen: Denies threats or abuse. Denies injuries from another. Nutritional tp1 screening: No deficits noted. Tuberculosis screening: No symptoms or risk factors identified. Fall Risk No fall in past 12 months (0 pts). No secondary diagnosis (0 pts). IV access (20 points). Ambulatory Aid- None/Bed Rest/Nurse Assist (0 pts). Gait- Normal/Bed Rest/Wheelchair (0 pts) Mental Status- Oriented to own ability (0 pts). Assessment: 14:10 Reassessment: see triage assessment. tp1 15:10 Reassessment: Patient appears in no apparent distress at this time. No changes from tp1 previously documented assessment. Patient and/or family updated on plan of care and expected duration. Pain level reassessed. Patient is alert, oriented x 3, equal unlabored respirations, skin warm/dry/pink. Patient denies pain at this time. 15:35 Reassessment: provider notified of critical lab. tp1 15:55 Reassessment: dr. coats at bedside. tp1 16:10 Reassessment: Patient appears in no apparent distress at this time. No changes from tp1 previously documented assessment. Patient is alert, oriented x 3, equal unlabored respirations, skin warm/dry/pink. Patient denies pain at this time. 17:10 Reassessment: Patient appears in no apparent distress at this time. No changes from tp1 previously documented assessment. Patient is alert, oriented x 3, equal unlabored respirations, skin warm/dry/pink. resting in bed Patient denies pain at this time. 18:19 Reassessment: Patient appears in no apparent distress at this time. No changes from tp1 previously documented assessment. Patient is alert, oriented x 3, equal unlabored respirations, skin warm/dry/pink. playing on phone, sandwich and pudding at bedside Patient denies pain at this time. Vital Signs: 14:00 BP 136 / 69; Pulse 88; Resp 16; Temp 98.5; Pulse Ox 100% on R/A; Weight 74.84 kg; tp1 Height 6 ft. 4 in. (193.04 cm); Pain 0/10; 15:56 BP 156 / 87; Pulse 90; Resp 17; Pulse Ox 100% on R/A; tp1 17:00 BP 133 / 71; Pulse 86; Resp 16; Pulse Ox 100% on R/A; tp1 18:00 BP 143 / 90; Pulse 91; Resp 16; Pulse Ox 100% on R/A; tp1 14:00 Body Mass Index 20.08 (74.84 kg, 193.04 cm) tp1 ED Course: 14:15 Patient arrived in ED. ph 14:16 Damion Mccauley DO is Attending Physician. ms3 14:18 Lula García, DELPHINE is Primary Nurse. tp1 14:22 Initial lab(s) drawn, by ms, sent to lab. Inserted saline lock: 20 gauge in left vg1 forearm, using aseptic technique. Blood collected. 14:29 Triage completed. tp1 14:30 Patient has correct armband on for positive identification. Placed in gown. Bed in low tp1 position. Call light in reach. Side rails up X2. Adult w/ patient. 14:30 Client placed on continuous cardiac and pulse oximetry monitoring. NIBP monitoring tp1 applied. 16:05 XRAY Chest (1 view) In Process Unspecified. EDMS 16:30 Todd Huitron MD is Hospitalizing Provider. ms3 19:43 No provider procedures requiring assistance completed. Patient admitted, IV remains in lg3 place. intact, No redness/swelling at site. 19:44 Arm band placed on left wrist. lg3 Administered Medications: 16:54 Drug: Potassium Effervescent Tablet 50 mEq Route: PO; tp1 18:22 Follow up: Response: No adverse reaction tp1 Medication: 19:44 VIS not applicable for this client. lg3 Outcome: 16:30 Decision to Hospitalize by Provider. ms3 19:44 Admitted to Med/surg accompanied by tech, via wheelchair, room 412, Report called to [facility] 19:44 Condition: stable 19:44 Instructed on the need for admit, Demonstrated understanding of instructions. 20:19 Patient left the ED. lg3 Signatures: Dispatcher [employer] EDMS Yris Ayers RN RN Jennifer Tolliver RN RN lg3 Linh Bashir RN RN vg1 Damion Mccauley, DO ms3 Lula García, DELPHINE RN tp1 Corrections: (The following items were deleted from the chart) 14:37 14:10 GI: Abdomen is flat, non-distended, tp1 tp1 15:49 15:00 Patient has correct armband on for positive identification. Placed in gown. Bed tp1 in low position. Call light in reach. Side rails up X2. Adult w/ patient. tp1 18:21 18:19 Reassessment: Patient appears in no apparent distress at this time. No changes tp1 from previously documented assessment. Patient is alert, oriented x 3, equal unlabored respirations, skin warm/dry/pink. playing on phone Patient denies pain at this time. tp1
--- NOTE | 2022-05-24 16:31 | EDPHYS ---
Physician Documentation [facility] Name: Shahid Cunningham Age: 77 yrs Sex: Male : 1945 Arrival Date: 05/24/2022 Time: 14:15 Bed 20 Private MD: ED Physician Damion Mccauley HPI: 05/24 20:04 This 77 yrs old Male presents to ER via EMS with complaints of low heart rate. ms3 20:04 77 yo male with PMH of "agent orange", DM, HTN, Skin CA, end-stage renal disease ms3 presents via EMS for decreased heart rate. Patient states EMS was called for low heart rate to his house and he declined. Patient then went to the [place] and heart rate was noted to be 38 and EMS was called. Per EMS patient's heart rate was 40. Patient denies pain. Patient denies alleviating or inciting factors. Patient denies nausea, vomiting, chest pain, shortness of breath. Historical: - Allergies: 14:30 Codeine; tp1 - Home Meds: 14:30 atorvastatin oral [Active]; Aspirin Oral [Active]; Furosemide Oral [Active]; calcitriol tp1 oral [Active]; carvedilol oral [Active]; Mirtazapine Oral [Active]; Vitamin B-12 Oral [Active]; hydroxyzine HCl Oral [Active]; - PMHx: 14:30 "agent orange"; DM; Hypertensive disorder; skin ca; vocal cord damage; renal failure; tp1 - PSHx: 14:30 L wrist SX from infection; pacemaker; squamous cell removals; tp1 - Immunization history:: Client reports receiving the 2nd dose of the Covid vaccine. - Social history:: Smoking status: Patient denies any tobacco usage or history of. ROS: 20:04 Constitutional: Negative for fever, and chills. ENT: Negative for injury, pain, and ms3 discharge, Neck: Negative for injury, pain, and swelling, Cardiovascular: Negative for chest pain, and palpitations. Respiratory: Negative for shortness of breath, cough, wheezing, and pleuritic chest pain, Abdomen/GI: Negative for abdominal pain, nausea, vomiting, diarrhea, and constipation, Back: Negative for injury and pain, Skin: Negative for injury, rash, and discoloration, Neuro: Negative for headache, weakness, numbness, tingling. 20:04 All other systems are negative. Exam: 13:18 ECG was reviewed by the Attending Physician. ms3 20:04 Constitutional: This is a well developed, well nourished patient who is awake, alert, ms3 and in no acute distress. Head/Face: Normocephalic, atraumatic. Neck: Trachea midline, no cervical lymphadenopathy. Supple, full range of motion without nuchal rigidity, or vertebral point tenderness. No Meningismus. Chest/axilla: Normal chest wall appearance and motion. Nontender with no deformity. Cardiovascular: Regular rate and rhythm with a normal S1 and S2. No gallops, murmurs, or rubs. Normal PMI, no JVD. No pulse deficits. Respiratory: Lungs have equal breath sounds bilaterally, clear to auscultation and percussion. No rales, rhonchi or wheezes noted. No increased work of breathing, no retractions or nasal flaring. Abdomen/GI: Soft, non-tender, with normal bowel sounds. No distension or tympany. No guarding or rebound. No evidence of tenderness throughout. Skin: Warm, dry with normal turgor. Normal color with no rashes, no lesions, and no evidence of cellulitis. MS/ Extremity: Pulses equal, no cyanosis. Neurovascular intact. Full, normal range of motion. Psych: Awake, alert, with orientation to person, place and time. Behavior, mood, and affect are within normal limits. Vital Signs: 14:00 BP 136 / 69; Pulse 88; Resp 16; Temp 98.5; Pulse Ox 100% on R/A; Weight 74.84 kg; tp1 Height 6 ft. 4 in. (193.04 cm); Pain 0/10; 15:56 BP 156 / 87; Pulse 90; Resp 17; Pulse Ox 100% on R/A; tp1 17:00 BP 133 / 71; Pulse 86; Resp 16; Pulse Ox 100% on R/A; tp1 18:00 BP 143 / 90; Pulse 91; Resp 16; Pulse Ox 100% on R/A; tp1 14:00 Body Mass Index 20.08 (74.84 kg, 193.04 cm) tp1 MDM: 13:18 Data reviewed: vital signs, nurses notes, lab test result(s), EKG, radiologic studies, ms3 and as a result, I will admit patient. Data interpreted: ethics instructor: rate is 80 beats/min, rhythm is paced rhythm with no ectopy, Interpretation: normal rate, normal rhythm. Counseling: I had a detailed discussion with the patient and/or guardian regarding: the historical points, exam findings, and any diagnostic results supporting the discharge/admit diagnosis, lab results, radiology results, the need for further work-up and treatment in the hospital. ED course: Discussed case with Dr. Huitron and he accepts patient. All questions were answered. Discussed necessity for admission due to hypokalemia with patient and his [id number]. All questions were answered. Patient understands and agrees with plan. 14:33 Patient medically screened. ms3 05/24 14:33 Order name: Basic Metabolic Panel; Complete Time: 16:11 ms3 05/24 14:33 Order name: CBC with Diff; Complete Time: 16:11 ms3 05/24 14:33 Order name: Magnesium; Complete Time: 16:11 ms3 05/24 14:33 Order name: NT PRO-BNP; Complete Time: 16:11 ms3 05/24 14:33 Order name: PT-INR; Complete Time: 16:11 ms3 05/24 14:33 Order name: Troponin HS; Complete Time: 16:11 ms3 05/24 14:33 Order name: XRAY Chest (1 view); Complete Time: 16:22 3 05/24 17:13 Order name: SARS RAPID iw 05/24 18:11 Order name: Basic Metabolic Panel EDSD 05/24 18:11 Order name: Basic Metabolic Panel EDSD 05/24 18:11 Order name: CBC with Automated Diff EDMS 05/24 18:11 Order name: CBC with Automated Diff EDMS 05/24 18:12 Order name: Potassium EDMS 05/24 14:33 Order name: EKG; Complete Time: 14:34 ms3 05/24 14:33 Order name: Cardiac monitoring; Complete Time: 14:49 ms3 05/24 14:33 Order name: EKG - Nurse/Tech; Complete Time: 15:24 ms3 05/24 14:33 Order name: IV Saline Lock; Complete Time: 14:49 ms3 05/24 14:33 Order name: Labs collected and sent; Complete Time: 14:49 ms3 05/24 14:33 Order name: O2 Per Protocol; Complete Time: 14:49 ms3 05/24 14:33 Order name: O2 Sat Monitoring; Complete Time: 14:49 ms3 05/24 18:11 Order name: Heart Healthy EDMS EC:18 Rate is 88 beats/min. Rhythm is regular. Left axis deviation noted. QRS interval is ms3 prolonged. Clinical impression: Paced. Interpreted by me. Reviewed by me. Administered Medications: 16:54 Drug: Potassium Effervescent Tablet 50 mEq Route: PO; tp1 18:22 Follow up: Response: No adverse reaction tp1 Disposition Summary: 05/24/22 16:30 Hospitalization Ordered Hospitalization Status: Observation ms3 Provider: Todd Huitron ms3 Location: Telemetry/MedSurg (observation) ms3 Condition: Stable ms3 Problem: new ms3 Symptoms: are unchanged ms3 Bed/Room Type: Standard ms3 Room Assignment: 412(05/24/22 19:11) dw Diagnosis - Hypokalemia ms3 - Bradycardia, unspecified ms3 - Essential (primary) hypertension ms3 - Anemia, unspecified ms3 Forms: - Medication Reconciliation Form ms3 - SBAR form ms3 Signatures: Dispatcher [employer] EDMS Ratna Rudolph RN RN dw Damion Mccauley DO DO ms3 Lula García, DELPHINE RN tp1 Corrections: (The following items were deleted from the chart) 19:11 16:30 ms3 dw 20:18 20:04 77 yo male with PMH of "agent orange", DM, HTN, Skin CA, end-stage renal disease, ms3 atrial fibrillation, colon cancer presents via EMS for decreased heart rate. Patient states EMS was called for low heart rate to his house and he declined. [facility] and heart rate was noted to be 38 and EMS was called. Per EMS patient's heart rate was 40. Patient denies pain. Patient denies alleviating or inciting factors. Patient denies nausea, vomiting, chest pain, shortness of breath. ms3
[2022-05-24] MEDS ORDERED: POTASSIUM 25 MEQ EFFERV TAB ONE (16:48)
[2022-05-24] MEDS ORDERED: ACETAMINOPHEN 500 MG TAB PO PRN (18:08)
[2022-05-24 18:33] LABS: SARS-CoV-2 Antigen Rapid Res Negative (Negative)
[2022-05-24] MEDS ORDERED: POTASSIUM CL SA 10 MEQ TAB PO ONE (20:45)
[2022-05-24] MEDS ORDERED: ALPRAZOLAM 0.25 MG TABLET PO ONE (21:02)
[2022-05-24 22:13] VITALS: O2SAT 99; BMI 21.2
--- NOTE | 2022-05-24 23:30 | CON ---
Date of Consultation: 05/24/2022 Reason For Consultation: Bradycardia. History Of Present Illness: This 77-year-old male was sent to the hospital by the nurse when she keyla cked his pulse and found it very low, however, the patient denies having any dizziness or syncope. 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 Has pacemaker in place. History of diabetes, hypertension, c hronic kidney failure on dialysis, was sent from the home after nurse checked his pulse and it was ve ry low. In the emergency room, he was having some frequent PVCs, which is causing the heart rate to be low, however, there is apparently a pacemaker in place that is giving a backup rate and the patien t has been asymptomatic. Past Medical History: As outlined above in the HPI. Medications: Refer reconciliation sheet for detailed list. Allergies: NO KNOWN DRUG ALLERGIES. Family History: No premature coronary artery disease or cancer. Social History: Does not smoke or drink. Does not use any drugs. Review of Systems: All systems reviewed and are negative except as mentioned in HPI. Physical Examination: Vital Signs: Reviewed. Head and Neck: Pupils are equal, reactive to light. Intact eye movements. No JVD. No cervical lym phadenopathy. Neck is supple. Thyroid is not enlarged. Lungs: Clear to auscultation bilaterally. No rhonchi, rales, or crackles. No accessory muscle use. Heart: Regular rate and rhythm. No extra sounds. Abdomen: Soft and nontender. Bowel sounds positive. No organomegaly. No masses or hernia. No rig idity or rebound. Extremities: No edema, clubbing, or cyanosis. Intact pulses. Skin: No rashes. Neurologic: Alert, awake, and oriented x3. No acute focal deficits appreciated. Investigations: Sodium 137, potassium 2.3. Troponin 138. Assessment And Recommendation: 1.Frequent premature ventricular contractions, likely due to hypokalemia. Replace potassium and ple ase check magnesium and replace if necessary and trend cardiac enzymes. 2.Elevated troponin. Trend cardiac enzymes for 2 more sets and obtain echocardiogram. 3.End-stage renal disease, on peritoneal dialysis. Consult Nephrology for further management. Sinc e the patient is severely hypokalemic, probably he needs adjustment of the dialysis protocol he is do ing. SR/MODL Voice ID: [id number] Report ID: [id number]
[2022-05-25 04:53] VITALS: BP 146/78; TEMP 97.3
[2022-05-25 06:14] LABS: Absolute Lymphocytes (CBC) 0.6 K/uL (0.7-4.9); Hematocrit 28.4 % (39.6-49.0); Lymphocytes % 9.2 % (15.3-44.8); MCV 83.8 fL (80-100); MPV 7.9 fL (7.6-11.3); RBC Red Blood Cell Count 3.39 M/uL (4.33-5.43)
[2022-05-25 06:53] LABS: Potassium 2.8 mmol/L (3.5-5.1)
[2022-05-25 06:54] LABS: Troponin High Sensitivity 113.8 pg/mL (<58.9)
[2022-05-25] MEDS ORDERED: POTASSIUM CL SA 10 MEQ TAB PO ONE (07:04)
--- NOTE | 2022-05-25 07:21 | HP ---
Date of Admission: 05/24/2022 Chief Complaint: Low pulse rate. History Of Present Illness: This is a 77-year-old very pleasant male patient, who went to [facility] today here in town and his palpable pulse as noted by staff at the [facility] was in the range of 30 b eats per minute or so. He was sent to emergency room. Upon arrival in the ER, he never had such a s ignificant bradycardia as [facility] was concerned about what the patient was noted to have was very f requent PVCs and considering this was a palpable pulse, probably it was inaccurate recording [facility] the [facility] and after the patient was evaluated, what we did find out that he had significant hypokalemi a problem with his potassium level of 2.3. The ER physician contacted me and informed me that he was given 50 mEq of oral potassium replacement and requesting admission to the hospital and I agree with that considering this significant hypokalemia and very frequent PVC. The patient denies any complai nts of any chest pain, shortness of breath. No nausea, vomiting, diarrhea. Allergies: NO KNOWN ALLERGIES. Review of Systems: GI: Occasional nausea problem. Constitutional: Fatigue. All other systems reviewed and negative. Medications: Aspirin 81 mg daily, atorvastatin 80 mg daily, carvedilol 25 mg daily in the evening, f urosemide 80 mg daily, mirtazapine 15 mg daily at bedtime, vitamin B12 1000 mcg daily, calcitriol 0.2 5 mcg daily. Past Medical History: Significant for vocal cord paralysis after intubation on 05/23/2018 causing ch ronic hoarseness of voice, type 2 diabetes mellitus, mixed hyperlipidemia, coronary artery disease, h ypertension, gastroesophageal reflux disease, benign prostatic hypertrophy, gastroparesis, diverticul osis, end-stage renal disease on peritoneal dialysis since 2016, anemia due to chronic kidney disease , thrombocytopenia, anxiety, depression, PTSD, and insomnia. 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 Family History: Father had heart disease. Mother of asthma. Social History: Negative for smoking and alcohol use. Physical Examination: VITAL SIGNS: Blood pressure 136/69, pulse 88, respiratory rate 16, temperature 98.5, oxygen saturati on 100%. Height 6 feet 4 inches. Weight 74.84 kg. General: Awake, alert, oriented, not in distress. HEENT: Head atraumatic, normocephalic. Conjunctivae nonerythematous. Sclerae white. Mouth, no thr ush or edema noted. Ears/Nose, no mass, lesion, discharge noted. Neck: Supple. No JVD, lymph nodes, bruit, thyromegaly noted. Lungs: Bilateral good equal air entry. Clear to auscultation. No rhonchi. No rales. Heart: Normal heart sounds, no murmur or gallop. Abdomen: Right anterior abdominal wall has presence of peritoneal dialysis catheter. Insertion site appears normal. No evidence of any swelling, discharge, redness, bleeding etc. Extremities: No leg edema. No calf tenderness. Skin: No rash, ulcer, cellulitis. Lymphatics: No lymph node enlargement in neck, supraclavicular, infraclavicular region. Neuro: No focal neurological deficit. Chest: Unremarkable. External Genitalia: Deferred. Rectal: Deferred. Laboratory Data: White count 8, hemoglobin 10.7, platelets 228. Sodium 137, potassium 2.3, chloride 97, bicarb 30, BUN 42, creatinine 9.49, glucose 151. Troponin 138.3. Chest x-ray, no acute cardiop ulmonary changes. Repeat potassium this evening was 2.7. Impression: 1.Severe hypokalemia. 2.Premature ventricular contractions. 3.End-stage renal disease, on peritoneal dialysis. 4.Coronary artery disease. 5.Hypertension. 6.Hyperlipidemia, mixed. 7.Type 2 diabetes mellitus. 8.Vocal cord paralysis. 9.Gastroesophageal reflux disease. 10.Anemia due to chronic kidney disease. 11.Thrombocytopenia. 12.Anxiety. 13.Depression. 14.Posttraumatic stress disorder. 15.Insomnia. Plan: We will admit the patient to hospital for further evaluation and management of this problem. The patient will be admitted to the hospital for observation. We will go ahead and give 40 mEq oral potassium replacement this evening. This will be second replacement dose. First dose was 50 mEq p.o . and this will be the second dose, which will be 40 mEq p.o. We will repeat blood work tomorrow felix sprague. Plan is to discharge him to go home tomorrow. Once we get repeat potassium, I also repeat tro ponin level in the morning. The patient does not have any cardiac symptoms at this point. Depending on the repeat troponin level tomorrow morning, we will decide if we need to have cardiology consulta tion or not. Plan of treatment discussed with the patient. Upon discharge, our plan will be to disc ontinue his furosemide. The patient gets peritoneal dialysis every night and every now and then he s kips it and he informed me that he is going to skip his peritoneal dialysis tonight since he is feeli ng okay. OSCAR/MODL Voice ID: [id number]
--- NOTE | 2022-05-25 17:28 | EKG ---
Test Date: 2022-05-24 Test Time: 14:16:30 [employer] Sales: TP MEASUREMENT RESULTS: Intervals: Rate: 90 ID: QRSD: [id number] QT: 454 QTc: 555 [place]: P: ID: [id number] T: 77 INTERPRETIVE STATEMENTS: Electronic ventricular pacemaker Compared to ECG 09/02/2021 17:48:49 No significant changes Electronically Signed On 05-25-22 17:26:36 CDT by Isidro Grace
--- NOTE | 2022-05-26 16:10 | DS ---
Date of Discharge: 05/25/2022 Physical Examination: HEENT: Unremarkable. Lungs: Clear to auscultation. Heart: Sounds normal. Abdomen: Soft. Bowel sounds normal. No guarding, rigidity, tenderness, distention. Extremity: No leg edema. Laboratory Data: Yesterday; white count 8, hemoglobin 10.7, platelets 228. This morning; white coun t 6.7, hemoglobin 9.9, platelets 209. Yesterday; sodium 137, potassium 2.3, chloride 97, bicarb 30, BUN 42, creatinine 9.49, glucose 151. Initial troponin 138.3, today second troponin was 113.8. Yest erday evening after the patient received 50 mEq of potassium chloride oral replacement therapy, his p otassium level came up to 2.7, so after that he received 40 mEq of potassium chloride p.o. and this m orning his potassium level was 2.8. After that potassium level of this morning, 40 mEq p.o. potassiu m chloride was ordered to be replaced prior to discharge. Hospital Course: A 77-year-old male patient, who was admitted to the hospital with low potassium lev el. Please see dictated H and P for more information. The patient was evaluated in the emergency ro om and admitted to the hospital. He had frequent PVCs and that gave a false impression of bradycardi a when he was at [facility]. Cardiology consultation was requested from Dr. Grace who saw the patien t yesterday and did not suggest any further intervention except correction of potassium. Echocardiog hilario was ordered to be done today. Unfortunately, the patient was in hurry to get out of the hospital because he had to go out of town for some important business, and we will go ahead and handle echoca rdiogram on outpatient basis. I have instructed him to come see me next week for followup and at alphonse t time we will repeat his blood work and also make arrangements for him to have echocardiogram done t [facility]. Final Diagnoses: 1.Severe hypokalemia. 2.Premature ventricular contractions. 3.End-stage renal disease, on peritoneal dialysis. 4.Coronary artery disease. 5.Hypertension. 6.Hyperlipidemia, mixed. 7.Type 2 diabetes mellitus. 8.Anemia due to chronic kidney disease. 9.Vocal cord paralysis. 10.Gastroesophageal reflux disease. 11.Thrombocytopenia. 12.Anxiety. 13.Depression. 14.Posttraumatic stress disorder. 15.Insomnia. Discharge Medications And Instructions: 1.Continue all prior home medication except stop furosemide. 2.Take potassium chloride 8 mEq 1 capsule by mouth daily starting tomorrow and prescription was sent to [facility] for 7 capsules. 3.Follow up at office next week. OSCAR/MODL Voice ID: [id number] Report ID: [id number]
== END 2022-05-25 09:18 | disposition home or self-care (01) ==
LOC: ER 14:01 → ERHOLD 18:07 → 4TH 19:44
PROVIDERS: ADMIT Internal Medicine; ATTEND Internal Medicine
DX: R00.1 Bradycardia, unspecified (principal); E87.6 Hypokalemia; R77.8 Other specified abnormalities of plasma proteins; N18.6 End stage renal disease; Z99.2 Dependence on renal dialysis; E11.9 Type 2 diabetes mellitus without complications; I10 Essential (primary) hypertension; N18.9 Chronic kidney disease, unspecified; Z95.0 Presence of cardiac pacemaker; Z88.6 Allergy status to analgesic agent; Z20.822 Contact with and (suspected) exposure to COVID-19
CPT/HCPCS: 93005; 85025 ×2; 80048 ×2; 36415; 83735; 84132; 85610; 84484 ×2; 83880; 71045; 99285; 87811; G0378 ×3